=== PATIENT | male | born 1935 | race Caucasian/White ===

== ENCOUNTER 2017-09-05 23:09 | Inpatient (IN) | payer MEDICARE, OTHER ==
[~2017-09-05] VITALS: Ht 190.5 cm; Wt 116.7 kg
[2017-09-05 23:18] VITALS: BP 129/75; PULSE 68; RESP 18; TEMP 98.1; O2SAT 95
[2017-09-05] MEDS ORDERED: TAMS5CAP PO (23:27)
[2017-09-05] MEDS ORDERED: ALLO100T PO (23:27)
[2017-09-05] MEDS ORDERED: ASPI81CH6 CHEW ×2 (23:27)
[2017-09-05] MEDS ORDERED: SIMV40TA PO (23:27)
[2017-09-05] MEDS ORDERED: blood pressure pill (23:31)
[2017-09-05] MEDS ORDERED: CRAN1TAB5 (23:32)
[2017-09-05] MEDS ORDERED: D31000CA3 (23:32)
[2017-09-05] MEDS ORDERED: SODIUM CHLORIDE 0.9% FLUSH 10 ML FLUSH IVF PRN (23:45)
[2017-09-05] MEDS ORDERED: ONDANSETRON HCL 4 MG/2 ML VIAL IVP ONE (23:45)
--- NOTE | 2017-09-05 23:57 | PD ---
HPI Chief Complaint: Cardiac Complaint Time Seen by Provider: 23:37 Travel History International Travel<30 days: No Contact w/Intl Traveler<30days: No Traveled to known affect area: No History of Present Illness HPI 81-year-old male arrives by EMS. The patient experienced a syncope episode after urination. He fell to the ground. Evidently the son reported a loss of consciousness to EMS. The patient states he does not believe he lost consciousness. EMS reports patient was diaphoretic and pale on scene. He is found to be in bigeminy rhythm. He was given lidocaine which evidently converted to an atrial fibrillation type rhythm. In the ER the patient has no complaints and states I feel normal right now. He does note over the past month or so he said chronic shortness of breath. Over the past 2 weeks is gotten worse. Dyspnea on exertion is reported. He denies lower extremity edema. He denies change in urination frequency or volume. No history of COPD or CHF. PFSH Past Medical History Hx Anticoagulant Therapy: Yes (aspirin ) Atrial Fibrillation: Yes (recent) Hypertension: Yes Medical other: Yes (arthritis ) Tetanus Vaccination: Unknown Influenza Vaccination: Yes Social History Alcohol Use: Yes (rarely ) Tobacco Use: No Substance Use: No Allergies-Medications (Allergen,Severity, Reaction): Coded Allergies: No Known Allergies (Verified Allergy, Unknown, 09/05/17) Reported Meds & Prescriptions Reported Meds & Active Scripts Active Reported Allopurinol 300 Mg Tab 300 Mg PO DAILY Losartan (Losartan Potassium) 50 Mg Tab 50 Mg PO DAILY Vitamin D-3 (Cholecalciferol) 1,000 Unit Cap Cranberry Tablet (Cranberry Conc/C/Bacill Coag) 450 Mg-30 Mg-50 Million Cell Tablet Flomax (Tamsulosin HCl) 0.4 Mg Cap 0.4 Mg PO HS Simvastatin 40 Mg Tab 40 Mg PO HS Aspirin Low Dose (Aspirin) 81 Mg Chew 325 Mg CHEW DAILY Review of Systems Except as stated in HPI: all other systems reviewed are Neg General / Constitutional: No: Fever Eyes: No: Diploplia Physical Exam Narrative GENERAL: 81-year-old male pleasant well-nourished well-developed no acute distress Vital Signs Date Time Temp Pulse Resp B/P (MAP) Pulse Ox O2 Delivery O2 Flow Rate FiO2 09/05/17 23:18 98.1 68 18 129/75 (93) 95 Nasal Cannula 2.00 SKIN: Warm and dry. HEAD: Atraumatic. Normocephalic. EYES: Pupils equal and round. No scleral icterus. No injection or drainage. ENT: No nasal bleeding or discharge. Mucous membranes pink and moist. NECK: Trachea midline. No JVD. CARDIOVASCULAR: Irregular. Rate about 80. RESPIRATORY: No accessory muscle use. Clear to auscultation. Breath sounds equal bilaterally. GASTROINTESTINAL: Abdomen soft, non-tender, nondistended. Hepatic and splenic margins not palpable. MUSCULOSKELETAL: Extremities without clubbing, cyanosis, or edema. No obvious deformities. NEUROLOGICAL: Awake and alert. No obvious cranial nerve deficits. Motor grossly within normal limits. Five out of 5 muscle strength in the arms and legs. Normal speech. PSYCHIATRIC: Appropriate mood and affect; insight and judgment normal. Data Data Last Documented VS Vital Signs Date Time Temp Pulse Resp B/P (MAP) Pulse Ox O2 Delivery O2 Flow Rate FiO2 09/06/17 01:48 79 20 196/91 (126) 97 Nasal Cannula 2.00 09/05/17 23:18 98.1 Orders Orders Electrocardiogram (09/05/17 23:37) Complete Blood Count With Diff (09/05/17 23:37) Comprehensive Metabolic Panel (09/05/17 23:37) Magnesium (Mg) (09/05/17 23:37) B-Type Natriuretic Peptide (09/05/17 23:37) Ckmb (Isoenzyme) Profile (09/05/17 23:37) Troponin I (09/05/17 23:37) Act Partial Throm Time (Ptt) (09/05/17 23:37) Prothrombin Time / Inr (Pt) (09/05/17 23:37) Urinalysis - C+S If Indicated (09/05/17 23:37) Chest, Single Ap (09/05/17 23:37) Ct Brain W/O Iv Contrast(Rout) (09/05/17 23:37) Blood Glucose (09/05/17 23:37) Ecg Monitoring (09/05/17 23:37) Iv Access Insert/Monitor (09/05/17 23:37) Oximetry (09/05/17 23:37) Ondansetron Inj (Zofran Inj) (09/05/17 23:45) Sodium Chloride 0.9% Flush (Ns Flush) (09/05/17 23:45) Orthostatic Vital Signs (09/05/17 23:37) Ceftriaxone Inj (Rocephin Inj) (09/06/17 01:30) Blood Culture (09/06/17 01:29) Azithromycin Inj (Zithromax Inj) (09/06/17 01:30) Metoprolol Tartrate (Lopressor) (09/06/17 09:00) Echo 2d Comp With Doppler (09/06/17 ) Consult Cardiology (09/06/17 ) Place In Observation (09/06/17 ) Vital Signs (Adult) Q4H (09/06/17 02:03) Activity Oob With Assistance (09/06/17 02:03) Supervisor Film Processing / Telemetry .CONTINUOUS (09/06/17 02:03) Intake + Output PRIYANK.QSHIFT (09/06/17 02:03) Diet Heart Healthy (09/06/17 Breakfast) Sodium Chloride 0.9% Flush (Ns Flush) (09/06/17 02:15) Sodium Chloride 0.9% Flush (Ns Flush) (09/06/17 09:00) Ondansetron Inj (Zofran Inj) (09/06/17 02:15) Comprehensive Metabolic Panel (09/07/17 06:00) Complete Blood Count With Diff (09/07/17 06:00) Troponin I (09/06/17 06:00) Troponin I (09/06/17 12:00) Case Management Consult (09/06/17 02:03) Scd Bilateral/Knee High PRIYANK.BID (09/06/17 02:03) Stu Bilateral/Knee High PRIYANK.QSHIFT (09/06/17 02:06) Acetaminophen (Tylenol) (09/06/17 02:15) Acetamin-Hydrocod 325-5 Mg ([place] 5-325 (09/06/17 02:15) Morphine Inj (Morphine Inj) (09/06/17 02:15) Docusate Sodium-Senna (Estee-Colace) (09/06/17 09:00) Magnesium Hydroxide Liq (Milk Of Magnesi (09/06/17 02:15) Sennosides (Senokot) (09/06/17 02:15) Bisacodyl Supp (Dulcolax Supp) (09/06/17 02:15) Lactulose Liq (Lactulose Liq) (09/06/17 02:15) Electrocardiogram (09/06/17 06:00) Ceftriaxone Inj (Rocephin Inj) (09/06/17 23:00) Azithromycin Inj (Zithromax Inj) (09/06/17 23:00) Tamsulosin (Flomax) (09/06/17 21:00) Pravastatin (Pravachol) (09/06/17 21:00) Thyroid Stimulating Hormone (09/06/17 06:00) Aspirin (Aspirin) (09/06/17 09:00) Admit Order (Ed Use Only) (09/06/17 02:15) Labs Laboratory Tests Test 09/05/17 23:43 White Blood Count 11.4 TH/MM3 Red Blood Count 4.16 MIL/MM3 Hemoglobin 13.2 GM/DL Hematocrit 39.1 % Mean Corpuscular Volume 94.2 FL Mean Corpuscular Hemoglobin 31.7 PG Mean Corpuscular Hemoglobin Concent 33.7 % Red Cell Distribution Width 14.7 % Platelet Count 149 TH/MM3 Mean Platelet Volume 8.2 FL Neutrophils (%) (Auto) 75.0 % Lymphocytes (%) (Auto) 14.2 % Monocytes (%) (Auto) 9.4 % Eosinophils (%) (Auto) 1.0 % Basophils (%) (Auto) 0.4 % Neutrophils # (Auto) 8.5 TH/MM3 Lymphocytes # (Auto) 1.6 TH/MM3 Monocytes # (Auto) 1.1 TH/MM3 Eosinophils # (Auto) 0.1 TH/MM3 Basophils # (Auto) 0.0 TH/MM3 CBC Comment DIFF FINAL Differential Comment Prothrombin Time 11.8 SEC Prothromb Time International Ratio 1.2 RATIO Activated Partial Thromboplast Time 24.4 SEC Blood Urea Nitrogen 22 MG/DL Creatinine 1.15 MG/DL Random Glucose 138 MG/DL Total Protein 7.1 GM/DL Albumin 2.6 GM/DL Calcium Level 8.1 MG/DL Magnesium Level 2.1 MG/DL Alkaline Phosphatase 72 U/L Aspartate Amino Transf (AST/SGOT) 22 U/L Alanine Aminotransferase (ALT/SGPT) 31 U/L Total Bilirubin 0.4 MG/DL Sodium Level 139 MEQ/L Potassium Level 3.8 MEQ/L Chloride Level 106 MEQ/L Carbon Dioxide Level 23.0 MEQ/L Anion Gap 10 MEQ/L Estimat Glomerular Filtration Rate 61 ML/MIN Total Creatine Kinase 39 U/L Troponin I 0.04 NG/ML B-Type Natriuretic Peptide 295 PG/ML MDM Medical Decision Making Medical Screen Exam Complete: Yes Emergency Medical Condition: Yes Medical Record Reviewed: Yes Differential Diagnosis Intracranial hemorrhage, pneumonia, arrhythmia anemia electro imbalance Narrative Course CBC & BMP Diagram 09/05/17 23:43 Total Protein 7.1, Albumin 2.6 L, Calcium Level 8.1 L, Magnesium Level 2.1, Alkaline Phosphatase 72, Aspartate Amino Transf (AST/SGOT) 22, Alanine Aminotransferase (ALT/SGPT) 31, Total Bilirubin 0.4 Tn 0.04 BNP 295 EKG: irregular rhythm, rate [address] [id number] Signed Impressions: Service Date/Time: Wednesday, September 06, 2017 00:02 - CONCLUSION: 1. No evidence of acute intracranial pathology. No masses are identified. Daron Philippe MD Chest X-Ray [id number]/[id number] Signed Impressions: Service Date/Time: Tuesday, September 05, 2017 23:57 - CONCLUSION: 1. Cardiomegaly 2. Opacity laterally in the right upper lobe characteristic of pneumonia. Followup examination to insure clearing is recommended. Daron Philippe MD Patient has a pneumonia. Concern for a diagnosis of CHF. Patient received Rocephin azithromycin and Lasix. The patient reports pending consult with Dr Boyle of cardiology. D/w Dr Herbert Diagnosis Primary Impression: Syncope Qualified Codes: R55 - Syncope and collapse Additional Impressions: PNA (pneumonia) Qualified Codes: J18.9 - Pneumonia, unspecified organism Arrhythmia Qualified Codes: I49.9 - Cardiac arrhythmia, unspecified Admitting Information Admitting Physician Requests: Observation Jose Alejandro Roldan MD Sep 05, 2017 23:57
[2017-09-05 23:59] LABS: AUTOMATED NEUTROPHIL # 8.5 TH/MM3 (1.8-7.7); BASOPHIL % 0.4 % (0.0-2.0); EOSINOPHIL # 0.1 TH/MM3 (0-0.4); HEMATOCRIT 39.1 % (39.0-51.0); HEMOGLOBIN 13.2 GM/DL (13.0-17.0); LYMPH % 14.2 % (9.0-44.0); LYMPHOCYTE # 1.6 TH/MM3 (1.0-4.8); MEAN CELL VOLUME 94.2 FL (80.0-100.0); MEAN CORPUSCULAR HEMOGLOBIN 31.7 PG (27.0-34.0); MEAN CORPUSCULAR HGB CONC 33.7 % (32.0-36.0); MEAN PLATELET VOLUME 8.2 FL (7.0-11.0); MONO % 9.4 % (0.0-8.0); MONOCYTE # 1.1 TH/MM3 (0-0.9); PLATELET COUNT 149 TH/MM3 (150-450); RED BLOOD COUNT 4.16 MIL/MM3 (4.50-5.90); RED CELL DISTRIBUTION WIDTH 14.7 % (11.6-17.2); WHITE BLOOD COUNT 11.4 TH/MM3 (4.0-11.0)
[2017-09-06] VITALS (16 sets, daily range): BP systolic 130–196; BP diastolic 62–94; PULSE 57–79; RESP 18–20; TEMP 97.4–98; O2SAT 94–98
[2017-09-06 00:11] LABS: INTERNATIONAL NORMALIZED RATIO 1.2 RATIO; PROTHROMBIN TIME - PATIENT 11.8 SEC (9.8-11.6)
--- NOTE | 2017-09-06 00:18 | RADRPT ---
EXAM DATE/TIME: 09/05/2017 23:57 [facility] COMPARISON: No previous studies available for comparison. INDICATIONS : Syncopal episode. MEDICAL HISTORY : None. SURGICAL HISTORY : None. ENCOUNTER: Initial ACUITY: 1 day PAIN SCORE: 0/10 LOCATION: Bilateral chest FINDINGS: The cardiac silhouette is enlarged in transverse diameter. There is prominence of the aortic knob is with calcification characteristic of atherosclerotic vascular disease. There is a small area of alveo lar opacity laterally in the right upper lobe adjacent to the minor fissure characteristic of pneumon ia. No pleural effusions are identified. CONCLUSION: 1. Cardiomegaly 2. Opacity laterally in the right upper lobe characteristic of pneumonia. Followup examination to in sure clearing is recommended. Daron Philippe MD on September 06, 2017 at 0:15 Board Certified Radiologist. This report was verified electronically.
[2017-09-06 00:19] LABS: ALBUMIN 2.6 GM/DL (3.4-5.0); ALT (GPT) 31 U/L (12-78); AST (GOT) 22 U/L (15-37); BLOOD UREA NITROGEN 22 MG/DL (7-18); CALCIUM 8.1 MG/DL (8.5-10.1); CHLORIDE 106 MEQ/L (98-107); CREATININE 1.15 MG/DL (0.60-1.30); GLOMERULAR FILTRATION RATE 61 ML/MIN (>89); GLUCOSE,RANDOM 138 MG/DL (74-106); MAGNESIUM 2.1 MG/DL (1.5-2.5); SODIUM (NA) 139 MEQ/L (136-145)
[2017-09-06 00:24] LABS: ALKALINE PHOSPHATASE 72 U/L (45-117); TOTAL BILIRUBIN ADULT 0.4 MG/DL (0.2-1.0); TOTAL PROTEIN 7.1 GM/DL (6.4-8.2); TROPONIN I 0.04 NG/ML (0.02-0.05)
[2017-09-06] MEDS ORDERED: AZITHROMYCIN INJ 500 MG in SODIUM CHLOR 0.9% 250 ML INJ 250 ML IV ONE (01:30)
[2017-09-06] MEDS ORDERED: cefTRIAXone INJ 1,000 MG in SODIUM CHLORIDE 0.9% INJ 100 ML IV ONE (01:30)
[2017-09-06] MEDS ORDERED: LOSA50TA PO (01:53)
[2017-09-06] MEDS ORDERED: ALLO300T2 PO (01:53)
[2017-09-06] MEDS ORDERED: BISACODYL 10 MG SUPP RECTAL PRN (02:15)
[2017-09-06] MEDS ORDERED: LACTULOSE SYRUP 20 GM/30 ML CUP PO PRN (02:15)
[2017-09-06] MEDS ORDERED: MAGNESIUM HYDROXIDE SUSP 30 ML CUP PO PRN (02:15)
[2017-09-06] MEDS ORDERED: SODIUM CHLORIDE 0.9% FLUSH 10 ML FLUSH IV FLUSH PRN (02:15)
[2017-09-06] MEDS ORDERED: ACETAMINOPHEN/HYDROcodone 325 MG/5 MG TAB PO PRN (02:15)
[2017-09-06] MEDS ORDERED: ACETAMINOPHEN 325 MG TAB PO PRN (02:15)
[2017-09-06] MEDS ORDERED: SENNOSIDES 8.6 MG TAB PO PRN (02:15)
[2017-09-06] MEDS ORDERED: MORPHINE SULFATE 2 MG/ML SYRINGE IV PUSH PRN (02:15)
[2017-09-06] MEDS ORDERED: ONDANSETRON HCL 4 MG/2 ML VIAL IVP PRN (02:15)
--- NOTE | 2017-09-06 02:21 | RADRPT ---
EXAM DATE/TIME: 09/06/2017 00:02 [facility] COMPARISON: No previous studies available for comparison. INDICATIONS : Dizziness. RADIATION DOSE: 56.35 CTDIvol (mGy) MEDICAL HISTORY : Hypertension. SURGICAL HISTORY : None. ENCOUNTER: Initial ACUITY: 1 day PAIN SCALE: 0/10 LOCATION: cranial TECHNIQUE: Multiple contiguous axial images were obtained of the head. Using automated exposure control and adj ustment of the mA and/or kV according to patient size, radiation dose was kept as low as reasonably a chievable to obtain optimal diagnostic quality images. DICOM format image data is available electro nically for review and comparison. FINDINGS: Noncontrast axial head CT demonstrates the ventricles to be normal in size and configuration with a n ormal sulcal pattern. No acute intracranial hemorrhage, acute cortical infarction, mass or midline sh ift is seen. There is decreased density in the periventricular white matter consistent with small ves [place] vascular disease not unexpected in a patient of this age. Posterior fossa structures are unremark able. Bone windows are unremarkable. CONCLUSION: 1. No evidence of acute intracranial pathology. No masses are identified. Daron Philippe MD on September 06, 2017 at 2:18 Board Certified Radiologist. This report was verified electronically.
--- NOTE | 2017-09-06 03:00 | HHI.HP ---
[facility] Krystyna Garcia MD Admission Diagnosis SYNCOPE,CHF,PNA Diagnoses: (1) Syncope Diagnosis: Principal (2) PNA (pneumonia) Diagnosis: Principal (3) Arrhythmia Diagnosis: Principal Travel History International Travel<30 Days: No Contact w/Intl Traveler <30 Da: No Traveled to Known Affected Are: No History of Present Illness This is an 81-year-old male with a PMH of HTN who is brought to the ER by EMS after an apparent syncopal event. Per patient, he had gone to the bathroom and when he got up from the toilet felt significant dizziness and SOB, states he tried to sit at the edge of the tub to catch his breath, however Son reports pt had syncopal event. No seizure activity reported. No previous h/o similar symptoms. Upon EMS arrival, pt noted to be in bigeminy, given Lidocaine w/ conversion to A-fib. Pt states he's been following w/ his PCP, Dr. Garcia, for SOB which started approx 2mo ago, at that time was referred for EKG and states the tech told him he was in A-fib, however never officially diagnosed. Was supposed to be referred to Dr. Arguello on Friday for further evaluation. Pt notes progressive SOB, first 100ft, then 50ft, now reports SOB w/ few feet. Denies fever, chills. Reports occasional non-productive cough. No edema. On arrival, BP 129/75, HR 68, O2 sat 95% on 2L NC, Afebrile. WBC 11.4. Platelets 149, no previous labs for comparison. BUN 22, GFR 61. BNP 295. Troponin 0.04. INR 1.2. CXR with cardiomegaly, opacity right upper lobe characteristic of pneumonia. CT Head with no acute findings. S/p Rocephin/Zithro in ER. Currently without complaints. Review of Systems Except as stated in HPI: all other systems reviewed are Neg ROS: 14 point review of systems otherwise negative. Past Family Social History Past Medical History PMH: HTN Past Surgical History PAST SURGICAL HISTORY: Bilateral Knee Replacement Allergies: Coded Allergies: No Known Allergies (Verified Allergy, Unknown, 09/05/17) Family History PAST FAMILY HISTORY: Reviewed. No h/o DM or CAD Social History PAST SOCIAL HISTORY: Occasional alcohol. Negative for tobacco or drugs. Physical Exam Vital Signs Vital Signs Date Time Temp Pulse Resp B/P (MAP) Pulse Ox O2 Delivery O2 Flow Rate FiO2 09/06/17 01:48 79 20 196/91 (126) 97 Nasal Cannula 2.00 09/06/17 00:24 59 18 130/62 (84) 96 Nasal Cannula 2.00 09/06/17 00:18 97 Nasal Cannula 2.00 09/05/17 23:18 98.1 68 18 129/75 (93) 95 Nasal Cannula 2.00 Physical Exam PE: GENERAL: Extremely pleasant elderly white male in no acute distress. HEENT: PERRLA, EOMI. No scleral icterus or conjunctival pallor. No lid lag or facial droop. CARDIOVASCULAR: Irregular, HR 90's. No obvious murmurs to auscultation. No chest tenderness to palpation. RESPIRATORY: No obvious rhonchi or wheezing. Clear to auscultation. Breath sounds equal bilaterally. GASTROINTESTINAL: Abdomen soft, non-tender, nondistended. BS normal. MUSCULOSKELETAL: Extremities without clubbing, cyanosis, or edema. No obvious deformities. NEUROLOGICAL: Awake, alert and oriented x4. No focal neurologic deficits. Moving both upper and lower extremities spontaneously. Laboratory Laboratory Tests Test 09/05/17 23:43 White Blood Count 11.4 Red Blood Count 4.16 Hemoglobin 13.2 Hematocrit 39.1 Mean Corpuscular Volume 94.2 Mean Corpuscular Hemoglobin 31.7 Mean Corpuscular Hemoglobin Concent 33.7 Red Cell Distribution Width 14.7 Platelet Count 149 Mean Platelet Volume 8.2 Neutrophils (%) (Auto) 75.0 Lymphocytes (%) (Auto) 14.2 Monocytes (%) (Auto) 9.4 Eosinophils (%) (Auto) 1.0 Basophils (%) (Auto) 0.4 Neutrophils # (Auto) 8.5 Lymphocytes # (Auto) 1.6 Monocytes # (Auto) 1.1 Eosinophils # (Auto) 0.1 Basophils # (Auto) 0.0 CBC Comment DIFF FINAL Differential Comment Prothrombin Time 11.8 Prothromb Time International Ratio 1.2 Activated Partial Thromboplast Time 24.4 Blood Urea Nitrogen 22 Creatinine 1.15 Random Glucose 138 Total Protein 7.1 Albumin 2.6 Calcium Level 8.1 Magnesium Level 2.1 Alkaline Phosphatase 72 Aspartate Amino Transf (AST/SGOT) 22 Alanine Aminotransferase (ALT/SGPT) 31 Total Bilirubin 0.4 Sodium Level 139 Potassium Level 3.8 Chloride Level 106 Carbon Dioxide Level 23.0 Anion Gap 10 Estimat Glomerular Filtration Rate 61 Total Creatine Kinase 39 Troponin I 0.04 B-Type Natriuretic Peptide 295 Date/Time Source Procedure Growth Status 09/06/17 01:45 Blood Peripheral Aerobic Blood Culture Pending Received 09/06/17 01:45 Blood Peripheral Anaerobic Blood Culture Pending Received Result Diagram: 09/05/17 2343 09/05/17 2343 Caprindory VTE Risk Assessment Caprini VTE Risk Assessment: No/Low Risk (score <= 1) Caprini Risk Assessment Model Point Value = 1 Point Value = 2 Point Value = 3 Point Value = 5 Age 41-60 Minor surgery BMI > 25 kg/m2 Swollen legs Varicose veins or History of unexplained or recurrent spontaneous Oral contraceptives or hormone replacement Sepsis (< 1 month) Serious lung disease, including pneumonia (< 1 month) Abnormal pulmonary function Acute myocardial infarction Congestive heart failure (< 1 month) History of inflammatory bowel disease Medical patient at bed rest Age 61-74 Arthroscopic surgery Major open surgery (> 45 min) Laparoscopic surgery (> 45 min) Malignancy Confined to bed (> 72 hours) Immobilizing plaster cast Central venous access Age >= 75 History of VTE Family history of VTE Factor V Leiden Prothrombin [id number] Lupus anticoagulant Anticardiolipin antibodies Elevated serum homocysteine Heparin-induced thrombocytopenia Other congenital or acquired thrombophilia Stroke (< 1 month) Elective arthroplasty Hip, pelvis, or leg fracture Acute spinal cord injury (< 1 month) Prophylaxis Regimen Total Risk Factor Score Risk Level Prophylaxis Regimen 0-1 Low Early ambulation 2 Moderate Order ONE of the following: *Sequential Compression Device (SCD) *Heparin 5000 units SQ BID 3-4 Higher Order ONE of the following medications: *Heparin 5000 units SQ TID *Enoxaparin/Lovenox 40 mg SQ daily (WT < 150 kg, CrCl > 30 mL/min) *Enoxaparin/Lovenox 30 mg SQ daily (WT < 150 kg, CrCl > 10-29 mL/min) *Enoxaparin/Lovenox 30 mg SQ BID (WT < 150 kg, CrCl > 30 mL/min) AND/OR *Sequential Compression Device (SCD) 5 or more Highest Order ONE of the following medications: *Heparin 5000 units SQ TID (Preferred with Epidurals) *Enoxaparin/Lovenox 40 mg SQ daily (WT < 150 kg, CrCl > 30 mL/min) *Enoxaparin/Lovenox 30 mg SQ daily (WT < 150 kg, CrCl > 10-29 mL/min) *Enoxaparin/Lovenox 30 mg SQ BID (WT < 150 kg, CrCl > 30 mL/min) AND *Sequential Compression Device (SCD) Assessment and Plan Problem List: (1) Syncope ICD Code: R55 - Syncope and collapse (2) Arrhythmia ICD Code: I49.9 - Cardiac arrhythmia, unspecified (3) PNA (pneumonia) ICD Code: J18.9 - Pneumonia, unspecified organism Assessment and Plan A/P: 1. Syncope: acute lightheadedness/dizziness w/ subsequent syncopal event, no head trauma reported. CT Head w/ no acute findings, images reviewed by me. Admit for Observation, Telemetry, check Echo to eval for underlying cardiomyopathy/valvular abnormality. Initial trop 0.04, will check serial cardiac enzymes to eval for possible ischemia. Was to follow w/ Dr. Arguello as outpatient, will consult for further evaluation. 2. Arrhythmia: noted to be in Bigeminy per EMS, s/p Lidocaine w/ conversion to A-fib, episode of A-fib approx 2 mo ago but no formal diagnosis per patient. Telemetry, monitor electrolytes. Start Metoprolol. Check Echo as above. Consult Cardiology for further eval. Repeat EKG w/ next set of trop. 3. PNA: CXR w/ RUL PNA, notes cough, SOB and pleuritic pain. S/p Rocephin/ Zithro in ER, will continue w/ IV Abx. 4. DVT Prophylaxis: SCD/Teds 5. Social work for d/c planning as needed 6. Case discussed w/ ER physician at length, labs/records/imaging reviewed by me. Jyothi Herbert MD Sep 06, 2017 02:59
[2017-09-06 06:52] LABS: TROPONIN I 0.05 NG/ML (0.02-0.05)
[2017-09-06] MEDS ORDERED: ASPIRIN 325 MG TAB PO SCH (09:00)
[2017-09-06] MEDS: SODIUM CHLORIDE 0.9% FLUSH 10 ML FLUSH IV FLUSH SCH ×2 (09:59→20:54)
[2017-09-06] MEDS: DOCUSATE SODIUM 50 MG/SENNA 8.6 MG TAB PO SCH ×2 (09:59→20:53)
[2017-09-06] MEDS: METOPROLOL TARTRATE 25 MG TAB PO SCH ×2 (09:59→20:53)
--- NOTE | 2017-09-06 15:44 | MB ---
cc: Wilfredo Boyle MD, Prady M MD DATE: 09/06/2017 REASON FOR CONSULTATION: Atrial fibrillation, syncope. HISTORY OF PRESENT ILLNESS: Mr. Hutton is a pleasant 81-year-old gentleman with history of hypertension and hyperlipidemia. No history of diabetes. He used to smoke but stopped 60 years ago. No history of diabetes or immediate family history of coronary artery disease at premature age. Recently diagnosed with atrial fibrillation and has been progressively more short of breath over the past 1-2 weeks to the point that he used to get dyspneic on exertion at the end of 1 block, now he can only walk a few feet and gets short of breath. He has been having some cough and sputum production, sometimes with streaks of blood. He has been having chest discomfort when he takes a deep breath. Denies angina or any palpitations. He has been getting dizzy with his shortness of breath. He came in because of a syncopal or a near-syncopal episode that happened after he went to the bathroom and he felt wobbly and wanted to sit at the edge of the top and then slipped down. His was watching and she does not feel like he had a complete syncopal spell; however, his "his eyes were rolling." There was no preceding chest pains or palpitations. He had some urinary incontinence, but no tongue biting or convulsions noted. He was taken by [facility] then and was told he had "bigeminy." Denies lower extremity edema, but he has been progressively short of breath, as I mentioned, over the past 1-2 weeks. REVIEW OF SYSTEMS: A 12-point system review was unremarkable, except as mentioned in the history of present illness. Denies fever. Admits to cough and sputum production as mentioned. No prior history of seizures. No prior history of congestive heart failure or obstructive sleep apnea diagnosis. MEDICATIONS AT HOME: Includes the followin. Losartan 50 mg p.o. daily. 2. Simvastatin 40 mg p.o. at bedtime. 3. Flomax 0.4 mg p.o. at bedtime, which he has been on for a period of time. 4. Allopurinol 300 mg p.o. daily. PAST MEDICAL AND SURGICAL HISTORY: Includes as mentioned above. Has 3 knee replacements in the past. Left femur fracture, surgical intervention. Benign prostatic hypertrophy with elevated PSA, which came down with the Flomax therapy. He is followed by urology. FAMILY HISTORY: Negative for chronic disease, cancer, diabetes, or hypertension. SOCIAL HISTORY: Denies smoking. He does drink a large beer a day and occasionally he will take a glass of whiskey as well. Denies recreational drug abuse. He is and lives with his . PHYSICAL EXAMINATION: GENERAL: An 81-year-old gentleman lying in bed, in no apparent distress, alert and oriented x 3, answers questions appropriately. VITAL SIGNS: Blood pressure is 140/70 mmHg, pulse of 60 beats per minute, irregularly irregular, respiration at 20 per minute, afebrile. HEENT: Shows head is normocephalic. Pupils equal, reactive. Throat is within normal limits. NECK: Supple. No carotid bruit. No thyromegaly. No jugular venous distention noted. LUNGS: Few crepitations noted at the bases bilaterally, more on the left base. HEART: S1, S2 are variable in intensity and distant with a faint S4 gallops. ABDOMEN: Somewhat obese but lax, nontender. Normoactive bowel sounds. No organomegaly, no masses felt. EXTREMITIES: No clubbing, cyanosis or edema. Pulses 2+ bilaterally and no bruit noted. NEUROLOGIC: Grossly intact with no focal deficits. RECTAL EXAM: Deferred. DIAGNOSTIC STUDIES: EKG shows atrial fibrillation with occasional PVCs versus aberrantly conducted beats and nonspecific ST-T wave changes. Controlled ventricular response rate. Laboratories shows a sodium 139, potassium 3.8, BUN of 22, creatinine 1.15. Nonspecific BNP elevation at 295. His troponin I x 3 is normal. TSH is 1.04, magnesium of 2.1. Coags were within normal limits. CBC shows a white count of 11.4, hemoglobin of 13.2 and a platelet count of 149. He had a chest x-ray that reported "cardiomegaly" and also right upper lobe "pneumonia". ASSESSMENT AND RECOMMENDATIONS: Progressive shortness of breath on top of atrial fibrillation; however, with occasional episodes of some degree of mild hemoptysis with pleuritic chest pain and progressive symptoms of shortness of breath for which a CTA to rule out pulmonary embolism will be ordered. I understand that his chest x-ray reported pneumonia; however, PE needs to be ruled out because of the above reasons. Complete set of electrolytes as well as a free T4 levels will be checked. I would continue her current regimen for now. However, if his CT angiogram is indicative of pulmonary emboli, then he should be fully anticoagulated. Of course with close eye on his streaks of blood in his sputum. CTA of the chest will also help identify any masses. Regarding his syncope, on telemetry, he is in atrial fibrillation with premature ventricular contractions in some runs that are multifocal but no significant arrhythmia so far to explain his syncope. An echocardiogram is ordered already and it will be checked. He will benefit from obstructive sleep apnea evaluation as an outpatient. He will also benefit from stress testing as an outpatient. Regarding his presumed diagnosis of pneumonia, he has already been started on antibiotics. I thank you for the consultation. MD JENY Parra/GITA , 02:59 PM , 03:43 PM
[2017-09-06] MEDS ORDERED: IOHEXOL 350 MG/ML 10 ML VIAL (for RAD DIAG) IVCONTRAST ONE (16:00)
--- NOTE | 2017-09-06 16:21 | RADRPT ---
EXAM DATE/TIME: 09/06/2017 15:51 [facility] COMPARISON: CHEST SINGLE AP, September 05, 2017, 23:57. INDICATIONS : Chest pain and shortness of breath for two days. IV CONTRAST: 70 cc Omnipaque 350 (iohexol) IV RADIATION DOSE: 28.17 CTDIvol (mGy) ; Patient positioning; Patient body habitus MEDICAL HISTORY : Hypertension. Cardiovascular disease SURGICAL HISTORY : None. ENCOUNTER: Initial ACUITY: 2 days PAIN SCALE: 5/10 LOCATION: Bilateral chest TECHNIQUE: Volumetric scanning of the chest was performed using a pulmonary embolism protocol MIP images were re constructed. Using automated exposure control and adjustment of the mA and/or kV according to patien t size, radiation dose was kept as low as reasonably achievable to obtain optimal diagnostic quality images. DICOM format image data is available electronically for review and comparison. Follow-up recommendations for detected pulmonary nodules are based at a minimum on nodule size and pa tient risk factors according to Fleischner Society Guidelines. FINDINGS: PULMONARY ARTERIES: There is extensive bilateral pulmonary embolism with a thin saddle embolus straddling the pulmonary a rtery bifurcation and extensive clot present in segmental and subsegmental vessels bilaterally. LUNGS: There is airspace opacity in the posterolateral aspect of the right upper lobe and mild interstitial parenchymal opacity in the lung bases bilaterally. PLEURAE: There is no pleural thickening or pleural effusion. MEDIASTINUM: There is good visualization of the great vessels of the middle mediastinum. No evidence of mediastin al or hilar adenopathy/mass. MUSCULOSKELETAL: Within normal limits for patient age. MISCELLANEOUS: The visualized upper abdominal organs demonstrate no acute abnormality. CONCLUSION: Extensive bilateral pulmonary embolism. Jose Nixon MD on September 06, 2017 at 16:15 Board Certified Radiologist. This report was verified electronically.
[2017-09-06] MEDS: ENOXAPARIN SODIUM 100 MG/ML SYRINGE SQ SCH (16:57)
--- NOTE | 2017-09-06 18:07 | RADRPT ---
EXAM DATE/TIME: 09/06/2017 17:23 [facility] COMPARISON: No previous studies available for comparison. INDICATIONS : Bilateral leg swelling. MEDICAL HISTORY : Hypertension. Anticoagulant therapy. Atrial fibrillation. Arthritis. SURGICAL HISTORY : Bilateral knee replacements. ENCOUNTER: Initial ACUITY: 1 day PAIN SCORE: 0/10 LOCATION: Bilateral legs. TECHNIQUE: Venous ultrasound of the left and right leg was performed from the inguinal ligament to the proximal calf. Real-time, color Doppler and spectral tracing, compression and augmentation techniques were us ed. FINDINGS: RIGHT LEG: There is nonocclusive thrombus in the right posterior tibial vein. Other venous tributaries of the ri t lower extremity are patent. LEFT LEG: There is occlusive thrombus in the left peroneal vein. There is nonocclusive thrombus in the left pop liteal and posterior tibial veins. Other venous tributaries of the left lower extremity are patent. CONCLUSION: Bilateral lower extremity DVT as above. Jose Melgar MD on September 06, 2017 at 18:03 Board Certified Radiologist. This report was verified electronically.
--- NOTE | 2017-09-06 18:24 | HHI.PR ---
Subjective Remarks telemetry- with occasional PVCs per patient increasing shortness of breath for past 3 weeeks this last week even with 20-30 ft distance experienced some chest discomfort- sharp with deep insipiration- right sided that has resolved 2 days ago had episodes of blood streak sputum seen by Dr. Boyle - ordered a CTA + PE patient denies any history of GI bleeding, or any bleeding tendencies no recent major surgeries Objective Vitals Vital Signs Date Time Temp Pulse Resp B/P (MAP) Pulse Ox O2 Delivery O2 Flow Rate FiO2 09/06/17 18:15 98.0 59 20 163/72 (102) 96 09/06/17 15:14 64 19 149/92 (111) 96 Nasal Cannula 2.00 09/06/17 09:30 61 18 143/73 (96) 98 Nasal Cannula 3.00 09/06/17 08:30 97.6 72 18 155/85 (108) 97 Nasal Cannula 3.00 09/06/17 04:51 98.0 63 18 136/69 (91) 96 Nasal Cannula 3.00 09/06/17 03:01 67 18 156/79 (104) 94 Nasal Cannula 3.00 09/06/17 01:48 79 20 196/91 (126) 97 Nasal Cannula 2.00 09/06/17 00:24 59 18 130/62 (84) 96 Nasal Cannula 2.00 09/06/17 00:18 97 Nasal Cannula 2.00 09/05/17 23:21 65 28 93 Nasal Cannula 2.00 09/05/17 23:18 98.1 68 18 129/75 (93) 95 Nasal Cannula 2.00 I/O 09/05/17 09/05/17 09/05/17 09/06/17 09/06/17 09/06/17 07:00 15:00 23:00 07:00 15:00 23:00 Intake Total 350 ml Balance 350 ml Intake IV Total 350 ml Result Diagram: 09/05/17 2343 09/05/17 [address] Angiography 09/06/17 1505 Signed Impressions: Service Date/Time: Wednesday, September 06, 2017 15:51 - CONCLUSION: Extensive bilateral pulmonary embolism. Jose Nixon MD Lower Extremity Ultrasound 09/06/17 0000 Signed Impressions: Service Date/Time: Wednesday, September 06, 2017 17:23 - CONCLUSION: Bilateral lower extremity DVT as above. Jose Melgar MD Head CT [id number] Signed Impressions: Service Date/Time: Wednesday, September 06, 2017 00:02 - CONCLUSION: 1. No evidence of acute intracranial pathology. No masses are identified. Daron Philippe MD Chest X-Ray [id number]/05/[id number] Signed Impressions: Service Date/Time: Tuesday, September 05, 2017 23:57 - CONCLUSION: 1. Cardiomegaly 2. Opacity laterally in the right upper lobe characteristic of pneumonia. Followup examination to insure clearing is recommended. Daron Philippe MD Objective Remarks awake and alert, tachypneic telemetry- with occasinal PVc decrease breath sounds, no rales regular rhythm, PVcs abdomen- globularly soft, nontender extremiteis no edema, no calf tenderness A/P Assessment and Plan A/P: 81 years old male Acute Bilateral Pulmonary embolism - no bleeding tendencies/history, no recent major surgeries -started on Lovenox q 12 - get Doppler of both LE- check for DVT - 02 NC Chest pain- likely from PE Syncope likely from PE -Cardiology ff - ff lytes - continue meds PNA: CXR w/ RUL PNA, -will continue w/ IV Abx. DVT Prophylaxis: - on Lovenox for above Will do walk test prior to DC ADD: reviewed CTA- extensive PE on description with thin SADDLE embolus -consult member service representative to evaluate for possible candidate for TPA- - called and d/w Dr. Ortiz - - transfer [place] [facility] [place] possible [place]PA Fidel Harp MD Sep 06, 2017 18:24
[2017-09-06] MEDS: PRAVASTATIN SOD 80 MG TAB PO SCH (20:53)
[2017-09-06] MEDS: TAMSULOSIN HCL 0.4 MG CAP PO SCH (20:53)
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
[2017-09-06] MEDS: cefTRIAXone INJ 1,000 MG in SODIUM CHLORIDE 0.9% INJ 100 ML IV SCH (23:19)
[2017-09-06] MEDS: AZITHROMYCIN INJ 500 MG in SODIUM CHLOR 0.9% 250 ML INJ 250 ML IV SCH (23:56)
[2017-09-07] VITALS (17 sets, daily range): BP systolic 106–186; BP diastolic 57–86; PULSE 46–69; RESP 28; TEMP 97–99.1; O2SAT 96–100
[2017-09-07] MEDS ORDERED: ALTEPLASE INJ 50 MG in WATER STERILE FOR INJ 100 ML IV ONE ×2
[2017-09-07] MEDS ORDERED: MISCELLANEOUS NURSING INFORMATION OTHER PRN
[2017-09-07 02:56] LABS: BILIRUBIN, URINE NEG (NEG); BLOOD, URINE LARGE (NEG); GLUCOSE,URINE NEG (NEG); KETONE, URINE NEG (NEG); MUCUS URINE FEW /lpf (OCC); NITRITE,URINE NEG (NEG); PH, URINE 5.5 (5.0-8.5); SQUAMOUS EPITHELIAL CELL URINE 1 /hpf (0-5); URINE COLOR YELLOW (YELLW/STRAW); URINE LEUKOCYTE ESTERASE NEG (NEG)
[2017-09-07] MEDS ORDERED: ENALAPRILAT 1.25 MG/ML VIAL IV PUSH PRN (04:30)
[2017-09-07] MEDS: ENOXAPARIN SODIUM 100 MG/ML SYRINGE SQ SCH ×2 (05:01→17:06)
[2017-09-07 06:00] LABS: AUTOMATED NEUTROPHIL # 8.7 TH/MM3 (1.8-7.7); BASOPHIL % 0.4 % (0.0-2.0); EOSINOPHIL # 0.1 TH/MM3 (0-0.4); EOSINOPHIL % 0.5 % (0.0-4.0); HEMOGLOBIN 11.8 GM/DL (13.0-17.0); LYMPH % 13.3 % (9.0-44.0); LYMPHOCYTE # 1.5 TH/MM3 (1.0-4.8); MEAN CELL VOLUME 93.4 FL (80.0-100.0); MEAN CORPUSCULAR HEMOGLOBIN 31.5 PG (27.0-34.0); MEAN CORPUSCULAR HGB CONC 33.8 % (32.0-36.0); MEAN PLATELET VOLUME 7.8 FL (7.0-11.0); MONO % 7.3 % (0.0-8.0); MONOCYTE # 0.8 TH/MM3 (0-0.9); NEUT % 78.5 % (16.0-70.0); PLATELET COUNT 147 TH/MM3 (150-450); RED BLOOD COUNT 3.75 MIL/MM3 (4.50-5.90); RED CELL DISTRIBUTION WIDTH 14.5 % (11.6-17.2)
[2017-09-07 06:16] LABS: ALBUMIN 2.4 GM/DL (3.4-5.0); ALT (GPT) 32 U/L (12-78); AST (GOT) 26 U/L (15-37); BICARBONATE 24.7 MEQ/L (21.0-32.0); BLOOD UREA NITROGEN 25 MG/DL (7-18); CALCIUM 8.3 MG/DL (8.5-10.1); CHLORIDE 106 MEQ/L (98-107); CREATININE 1.02 MG/DL (0.60-1.30); GLOMERULAR FILTRATION RATE 70 ML/MIN (>89); GLUCOSE,RANDOM 115 MG/DL (74-106); SODIUM (NA) 138 MEQ/L (136-145)
[2017-09-07 06:19] LABS: ALKALINE PHOSPHATASE 66 U/L (45-117); FREE T4 1.14 NG/DL (0.76-1.46); PHOSPHORUS 3.4 MG/DL (2.5-4.9); TOTAL BILIRUBIN ADULT 0.6 MG/DL (0.2-1.0); TOTAL PROTEIN 6.5 GM/DL (6.4-8.2)
[2017-09-07] MEDS: DOCUSATE SODIUM 50 MG/SENNA 8.6 MG TAB PO SCH ×2 (09:00→21:01)
[2017-09-07] MEDS: DOCUSATE SODIUM 100 MG CAP PO SCH ×2 (09:09→21:01)
[2017-09-07] MEDS: LOSARTAN 50 MG TAB PO SCH (09:09)
[2017-09-07] MEDS: ALLOPURINOL 300 MG TAB PO SCH (09:09)
[2017-09-07] MEDS: SODIUM CHLORIDE 0.9% FLUSH 10 ML FLUSH IV FLUSH SCH ×2 (09:10→21:01)
[2017-09-07] MEDS: FAMOTIDINE 20 MG TAB PO SCH ×2 (09:13→21:01)
[2017-09-07] MEDS ORDERED: hydrALAZINE HCL 20 MG/ML VIAL IV PUSH PRN (10:30)
--- NOTE | 2017-09-07 11:13 | HHI.CCPN ---
Subjective Remarks/Hospital Course Hospital Course: 81-year-old male with past medical history of hypertension, hyperlipidemia, obesity, remote tobacco abuse who presented [place] [facility] [place] of [place]05 after a syncopal event. Reportedly patient was in the bathroom and was short of breath and then became unresponsive and was lowered to the ground by his son. No seizure or head trauma.. EVAC was called and found him diaphoretic, pale, in bigeminy. He was given lidocaine and then was in A fib. Troponin was normal. CXR showed RLL opacity and he as given ceftriaxone and azithromycin. He was admitted to hospitalist for further workup. CT chest was ordered by Dr. Serrato and demonstrates extensive bilateral pulmonary emboli. There is a saddle embolus component. He has received Lovenox [address] Harp has consulted [facility] regarding possible fibrinolytic therapy. Patient state he has noticed dyspnea on exertion about 2 months. He states he had previously had an EKG in December 2016 and had been told that he had atrial fibrillation. He was told to follow-up with cardiology but did not. A week ago he was at PCP (Dr. García) and was referred to Dr. Serrato. Patient states that for the last 2 weeks he has had progressive worsening SOB. Over the last 2 days he has been SOB with ambulating a few feet. He has had some cough, occasionally productive of blood tinged sputum. No peripheral edema. He has had some pain in his right posterior thorax, intermittent, pleuritic. No chest pain with exertion. No palpitations. No prior h/o VTE, no recent surgery, no known malignancy, no trauma. No h/o stroke/TIA , ICH, trauma, brain/spinal lesions, GI or other bleeding, bleeding diathesis, recent surgery, spinal intervention, prior anticoagulant therapy, retinopathy or other absolute contraindication for fibrinolytic. Serial troponins have been normal. BNP 295. He has been normotensive/hypertensive. Upon initial discussion of risk/benefits of fibrinolytic therapy for submassive PE (including relative contraindications of age and possibly duration of symptoms), patient expresses interest in pursuing TPA so contacted Dr. Mahmood who is diamond mounter for Echo and obtaining stat Echo to evaluate R heart strain. Extensive discussion with patient, , son and grandson. Subjective: 09/07: improving symptoms. hgb dropped from 13 --> 11 today. will recheck. ROS otherwise negative. on 3L o2 by NC. Objective Vital Signs Date Time Temp Pulse Resp B/P (MAP) Pulse Ox O2 Delivery O2 Flow Rate FiO2 09/07/17 06:00 47 09/07/17 04:00 99.1 186/86 (119) 100 09/07/17 03:00 Nasal Cannula 3.00 09/06/17 18:15 20 Intake and Output 09/07/17 09/07/17 09/08/17 08:00 16:00 00:00 Intake Total 960 ml Output Total 1485 ml Balance -525 ml Result Diagram: 09/07/17 0540 09/07/17 0540 Objective Remarks GENERAL: elderly patient who is sitting up in bed on nasal cannula. He is alert and interactive SKIN: Warm and dry, well-perfused without bruising HEAD: Atraumatic. Normocephalic. EYES: Pupils equal and round. No scleral icterus. No injection or drainage. ENT: No nasal bleeding or discharge. Mucous membranes pink and moist. NECK: Trachea midline. Thick neck, no JVD appreciated. CARDIOVASCULAR: Irregularly irregular with rate in the 60s. afib by tele. RESPIRATORY: unlabored this morning. in no distress. Without accessory muscle use. GASTROINTESTINAL: Abdomen soft, protuberant, non-tender, nondistended. MUSCULOSKELETAL: Extremities without clubbing, cyanosis, or edema. No obvious deformities. NEUROLOGICAL: Awake and alert, oriented 4. No obvious cranial nerve deficits. A/P Problem List: (1) Systolic heart failure, chronic ICD Code: I50.22 - Chronic systolic (congestive) heart failure Status: Chronic (2) Atrial fibrillation ICD Code: I48.91 - Unspecified atrial fibrillation Status: Chronic (3) Pulmonary embolism, bilateral ICD Code: I26.99 - Other pulmonary embolism without acute cor pulmonale Status: Acute (4) Obesity (BMI 30-39.9) ICD Code: E66.9 - Obesity, unspecified Status: Chronic (5) BPH (benign prostatic hyperplasia) ICD Code: N40.0 - Benign prostatic hyperplasia without lower urinary tract symptoms Status: Chronic (6) Hematuria ICD Code: R31.9 - Hematuria, unspecified Status: Acute Permanent Comment: post - TPA Last Edited By: Aracelis Ortiz on Sep 07, 2017 05: 53 (7) Hemoptysis ICD Code: R04.2 - Hemoptysis Status: Acute (8) History of tobacco abuse ICD Code: Z87.891 - Personal history of nicotine dependence Status: Chronic (9) DVT, bilateral lower limbs ICD Code: I82.403 - Acute embolism and thrombosis of unspecified deep veins of lower extremity, bilateral Status: Acute Assessment and Plan Assessment: 81yM with submassive pulmonary embolism s/p 50mg TPA on 09/06. clinically stable. will trend hgb. keep bedrest until 24h post TPA. continue anticoagulation. mild hematuria clearing up. keep in ICU at least 1 more day. NEURO: CT brain 09/06 - negative for acute intracranial abnormality. RESP: Dyspnea Prior tobacco abuse NC wean as tolerated. IS q1 hour awake. CV: Submassive PE with Right heart strain Chronic systolic heart failure. Syncope Atrial fibrillation, rate controlled Hemoptysis - suspect secondary to PE Hypertension Hyperlipidemia CTPA with saddle pulmonary embolism, bilateral segmental and subsegmental PE. He has been normotensive on NC. Troponin negative, BNP 295. Stat Echo obtained and discussed with Dr. Mahmood. EF 35-40%. RV dilated and hypokinetic. RSVP 67 Although he has been hemodynamically stable in the hospital, this is a high risk PE. Discussed in detail risk/ benefit of TPA 50 mg IV dose for submassive PE. Patient aware of relative contraindication of age >80. Also discussed that because of duration of symptoms, if the RV strain has been more long standing, there may be less benefit from fibrinolytic. He may have had multiple subacute PE with acute submassive event yesterday evening when he had syncope. Hope is that aggressive treatment of this clot burden can decrease pulmonary htn, lower risk of recurrent PE, produce improvement of symptoms and activity tolerance. Discussed 1-3% risk of ICH and ~10% risk of hemorrhage when including extracranial. Patient places high value on quality of life and feels he would want aggressive therapy to mitigate consequences of pulmonary HTN and RV dysfunction. He is accepting risks of hemorrhage and has discussed this with his and children who are in agreement. Has received Lovenox, will continue concomitantly per MOPPETT trial methodology. Transfer to ICU. Give TPA 10 mg IV with 40 mg IV over 2 hours. Monitor for bleeding. In view of RV dysfunction and acute PE, will hold beta arturo at this time. 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 Resume losartan 50 mg po daily. Hold aspirin for now following TPA Cardiology following, Dr. Serrato. Continue simvastatin 40 mg p.o. nightly Although patient denied prior Echo, I later discovered in [employer] system that showed global hypokinesis EF 40-45%, biatrial enlargement. Moderate MR/ TR, mod pulmonary HTN. GI: Obesity Heart healthy diet FEN/RENAL: Urinary retention BPH Patient had post void residual of 950. Had I/O cath for this. In view of the fact we are proceeding with fibrinolytics, will Place Arrieta. Continue flomax 0.4 mg p.o. nightly ID: Community acquired pneumonia On Rocephin and azithromycin 09/06 #2. Follow-up blood cultures. Initial urinalysis upon insertion of Arrieta catheter has pyuria. We will follow-up urine culture. HEME: Submassive pulmonary embolus Bilateral lower extremity DVT (right posterior tibial nonocclusive thrombus. Occlusive thrombus left peroneal vein. Nonocclusive thrombus left popliteal and posterior tibial) No clear provoking factor. Will consult hematology for recommendations regarding workup and for followup. ENDO: Monitor glucose. Start insulin sliding scale if needed TSH normal MSK: Gout Continue with allopurinol 300 mg p.o. daily PROPH: Lovenox as per above for DVT treatment. ACCESS: PIV providing adequate access at this time. No IV sticks x24 hours. Famotidine for stress ulcer prophylactic Full code Rubén Clay MD Sep 07, 2017 11:13
[2017-09-07] MEDS ORDERED: LOSARTAN 50 MG TAB PO ONE (11:45)
[2017-09-07 15:18] LABS: HEMATOCRIT 35.4 % (39.0-51.0); HEMOGLOBIN 11.9 GM/DL (13.0-17.0)
--- NOTE | 2017-09-07 15:43 | EKG ---
Date Performed: 09/05/2017 Time Performed: 23:18:54 PTAGE: 81 years EKG: Atrial fibrillation. There is a couplet pattern. Patterning consistent either with couplets or atrial fibrillation with aberrency. ABNORMAL ECG NO PREVIOUS TRACING DOCTOR: Clarissa Cr Interpretating Date/Time 09/07/2017 15:42:20
--- NOTE | 2017-09-07 15:45 | EKG ---
Date Performed: 09/06/2017 Time Performed: 06:00:22 PTAGE: 81 years EKG: ATRIAL FIBRILLATION WITH CONTROLLED VENTRICULAR RATE AND WIDE COMPLEX BEATS OR PVC Compared to previous tracing, the wide complex beats are less frequent. ABNORMAL ECG PREVIOUS TRACING : 09/05/2017 23.18.54 DOCTOR: Clarissa Cr Interpretating Date/Time 09/07/2017 15:43:21
[2017-09-07] MEDS ORDERED: LOSARTAN 50 MG TAB PO SCH (21:00)
[2017-09-07] MEDS: PRAVASTATIN SOD 80 MG TAB PO SCH (21:01)
[2017-09-07] MEDS: TAMSULOSIN HCL 0.4 MG CAP PO SCH (21:01)
[2017-09-07] MEDS: cefTRIAXone INJ 1,000 MG in SODIUM CHLORIDE 0.9% INJ 100 ML IV SCH (22:15)
[2017-09-07] MEDS: AZITHROMYCIN INJ 500 MG in SODIUM CHLOR 0.9% 250 ML INJ 250 ML IV SCH (22:49)
[2017-09-08] VITALS (10 sets, daily range): BP systolic 109–184; BP diastolic 56–97; PULSE 38–74; RESP 15–26; TEMP 97.3–98.9; O2SAT 94–100
[2017-09-08] MEDS: ENOXAPARIN SODIUM 100 MG/ML SYRINGE SQ SCH (03:57)
[2017-09-08 07:09] LABS: HEMATOCRIT 35.5 % (39.0-51.0); HEMOGLOBIN 12.4 GM/DL (13.0-17.0); MEAN CELL VOLUME 93.1 FL (80.0-100.0); MEAN CORPUSCULAR HEMOGLOBIN 32.5 PG (27.0-34.0); MEAN CORPUSCULAR HGB CONC 34.9 % (32.0-36.0); PLATELET COUNT 183 TH/MM3 (150-450); RED BLOOD COUNT 3.82 MIL/MM3 (4.50-5.90); RED CELL DISTRIBUTION WIDTH 14.6 % (11.6-17.2); WHITE BLOOD COUNT 9.6 TH/MM3 (4.0-11.0)
[2017-09-08 07:13] LABS: BICARBONATE 22.9 MEQ/L (21.0-32.0); CALCIUM 8.6 MG/DL (8.5-10.1); CREATININE 0.89 MG/DL (0.60-1.30)
--- NOTE | 2017-09-08 08:43 | HHI.CCPN ---
Subjective Remarks/Hospital Course Hospital Course: 81-year-old male with past medical history of hypertension, hyperlipidemia, obesity, remote tobacco abuse who presented to [facility] the evening of 09/05 after a syncopal event. Reportedly patient was in the bathroom and was short of breath and then became unresponsive and was lowered to the ground by his son. No seizure or head trauma.. EVAC was called and found him diaphoretic, pale, in bigeminy. He was given lidocaine and then was in A fib. Troponin was normal. CXR showed RLL opacity and he as given ceftriaxone and azithromycin. He was admitted to hospitalist for further workup. CT chest was ordered by Dr. Serrato and demonstrates extensive bilateral pulmonary emboli. There is a saddle embolus component. He has received Lovenox [address] Harp has consulted [facility] regarding possible fibrinolytic therapy. Patient state he has noticed dyspnea on exertion about 2 months. He states he had previously had an EKG in December 2016 and had been told that he had atrial fibrillation. He was told to follow-up with cardiology but did not. A week ago he was at PCP (Dr. García) and was referred to Dr. Serrato. Patient states that for the last 2 weeks he has had progressive worsening SOB. Over the last 2 days he has been SOB with ambulating a few feet. He has had some cough, occasionally productive of blood tinged sputum. No peripheral edema. He has had some pain in his right posterior thorax, intermittent, pleuritic. No chest pain with exertion. No palpitations. No prior h/o VTE, no recent surgery, no known malignancy, no trauma. No h/o stroke/TIA , ICH, trauma, brain/spinal lesions, GI or other bleeding, bleeding diathesis, recent surgery, spinal intervention, prior anticoagulant therapy, retinopathy or other absolute contraindication for fibrinolytic. Serial troponins have been normal. BNP 295. He has been normotensive/hypertensive. Upon initial discussion of risk/benefits of fibrinolytic therapy for submassive PE (including relative contraindications of age and possibly duration of symptoms), patient expresses interest in pursuing TPA so contacted Dr. Mahmood who is sap pp consultant for Echo and obtaining stat Echo to evaluate R heart strain. Extensive discussion with patient, , son and grandson. Subjective: 09/07: improving symptoms. hgb dropped from 13 --> 11 today. will recheck. ROS otherwise negative. on 3L o2 by NC. 09/08: on room air. symptoms continue to improve. hgb stable. denies complaints. sob improving subjectively. urine is becoming more clear, but slightly hematuria persists. Objective Vital Signs Date Time Temp Pulse Resp B/P (MAP) Pulse Ox O2 Delivery O2 Flow Rate FiO2 09/08/17 08:00 97.5 38 15 127/67 (87) 100 09/08/17 07:00 Room Air 09/08/17 03:00 3.00 Intake and Output 09/08/17 09/08/17 09/09/17 08:00 16:00 00:00 Intake Total 240 ml Output Total 1000 ml Balance -760 ml Result Diagram: 09/08/1760109/08/17601 Objective Remarks GENERAL: elderly patient who is sitting up in bed on room air. He is alert and interactive SKIN: Warm and dry, well-perfused without bruising HEAD: Atraumatic. Normocephalic. EYES: Pupils equal and round. No scleral icterus. No injection or drainage. ENT: No nasal bleeding or discharge. Mucous membranes pink and moist. NECK: Trachea midline. Thick neck, no JVD appreciated. CARDIOVASCULAR: Irregularly irregular with rate in the 50s. afib by tele. RESPIRATORY: unlabored this morning. in no distress. Without accessory muscle use. GASTROINTESTINAL: Abdomen soft, protuberant, non-tender, nondistended. MUSCULOSKELETAL: Extremities without clubbing, cyanosis, or edema. No obvious deformities. NEUROLOGICAL: Awake and alert, oriented 4. No obvious cranial nerve deficits. A/P Problem List: (1) Systolic heart failure, chronic ICD Code: I50.22 - Chronic systolic (congestive) heart failure Status: Chronic (2) Atrial fibrillation ICD Code: I48.91 - Unspecified atrial fibrillation Status: Chronic (3) Pulmonary embolism, bilateral ICD Code: I26.99 - Other pulmonary embolism without acute cor pulmonale Status: Acute (4) Obesity (BMI 30-39.9) ICD Code: E66.9 - Obesity, unspecified Status: Chronic (5) BPH (benign prostatic hyperplasia) ICD Code: N40.0 - Benign prostatic hyperplasia without lower urinary tract symptoms Status: Chronic (6) Hematuria ICD Code: R31.9 - Hematuria, unspecified Status: Acute Permanent Comment: post - TPA Last Edited By: Aracelis Ortiz on Sep 07, 2017 05: 53 (7) Hemoptysis ICD Code: R04.2 - Hemoptysis Status: Acute (8) History of tobacco abuse ICD Code: Z87.891 - Personal history of nicotine dependence Status: Chronic (9) DVT, bilateral lower limbs ICD Code: I82.403 - Acute embolism and thrombosis of unspecified deep veins of lower extremity, bilateral Status: Acute Assessment and Plan Assessment: 81yM with submassive pulmonary embolism s/p 50mg TPA on 09/06. clinically stable. OOB with assistance. PT/OT consults. stable for transfer out of ICU. will consult hospitalist service. have discussed care with marketing program manager , and his preference is Eliquis for long-term anticoagulation, so we will plan to start this today and transition off lovenox. NEURO: CT brain 09/06 - negative for acute intracranial abnormality. RESP: Dyspnea Prior tobacco abuse NC wean as tolerated. IS q1 hour awake. CV: Submassive PE with Right heart strain Chronic systolic heart failure. Syncope Atrial fibrillation, rate controlled Hemoptysis - suspect secondary to PE Hypertension Hyperlipidemia CTPA with saddle pulmonary embolism, bilateral segmental and subsegmental PE. He has been normotensive on NC. Troponin negative, BNP 295. Stat Echo obtained and discussed with Dr. Mahmood. EF 35-40%. RV dilated and hypokinetic. RSVP 67 Although he has been hemodynamically stable in the hospital, this is a high risk PE. Discussed in detail risk/ benefit of TPA 50 mg IV dose for submassive PE. Patient aware of relative contraindication of age >80. Also discussed that because of duration of symptoms, if the RV strain has been more long standing, there may be less benefit from fibrinolytic. He may have had multiple subacute PE with acute submassive event yesterday evening when he had syncope. Hope is that aggressive treatment of this clot burden can decrease pulmonary htn, lower risk of recurrent PE, produce improvement of symptoms and activity tolerance. Discussed 1-3% risk of ICH and ~10% risk of hemorrhage when including extracranial. Patient places high value on quality of life and feels he would want aggressive therapy to mitigate consequences of pulmonary HTN and RV dysfunction. He is accepting risks of hemorrhage and has discussed this with his and children who are in agreement. Has received Lovenox, will continue concomitantly per MOPPETT trial methodology. Transfer to ICU. Give TPA 10 mg IV with 40 mg IV over 2 hours. Monitor for bleeding. In view of RV dysfunction and acute PE, will hold beta arturo at this time. Beta arturo will be needed terminal superintendent for CHF once stabilized from PE. losartan 50 mg po daily. Hold aspirin for now following TPA Cardiology following, Dr. Serrato. Continue simvastatin 40 mg p.o. nightly Although patient denied prior Echo, I later discovered in [employer] system that showed global hypokinesis EF 40-45%, biatrial enlargement. Moderate MR/ TR, mod pulmonary HTN. GI: Obesity Heart healthy diet FEN/RENAL: Urinary retention BPH Patient had post void residual of 950. Had I/O cath for this. In view of the fact we are proceeding with fibrinolytics, will Place Arrieta. Continue flomax 0.4 mg p.o. nightly ID: Community acquired pneumonia On Rocephin and azithromycin 09/06 #3. d/c today. cultures NGTD x 48h. HEME: Submassive pulmonary embolus Bilateral lower extremity DVT (right posterior tibial nonocclusive thrombus. Occlusive thrombus left peroneal vein. Nonocclusive thrombus left popliteal and posterior tibial) No clear provoking factor. Will consult hematology for recommendations regarding workup and for followup. transition off lovenox to Eliquis 10mg po BID x 7 days, then 5mg BID. ENDO: Monitor glucose. Start insulin sliding scale if needed TSH normal MSK: Gout Continue with allopurinol 300 mg p.o. daily PROPH: eliquis as above. ACCESS: PIV providing adequate access at this time. Famotidine for stress ulcer prophylactic Full code Rubén Clay MD Sep 08, 2017 08:43
[2017-09-08] MEDS: DOCUSATE SODIUM 50 MG/SENNA 8.6 MG TAB PO SCH ×2 (09:00→21:00)
[2017-09-08] MEDS: SODIUM CHLORIDE 0.9% FLUSH 10 ML FLUSH IV FLUSH SCH ×2 (09:00→21:00)
--- NOTE | 2017-09-08 09:11 | MB ---
cc: Troy Ramirez MD DATE: 09/07/2017 REASON FOR CONSULTATION: The patient with diagnosis of extensive pulmonary emboli and DVT. HISTORY OF PRESENT ILLNESS: This is an 81-year-old male who has a history of hypertension and hyperlipidemia, who has been becoming progressively short of breath over the past 4-5 months. He was found to have atrial fibrillation and was recently seen by his controller coal or ore. He was brought to the emergency room with dizziness and shortness of breath. He became lightheaded and he had a presyncopal episode. EVAC was called and he was found to have bigeminy. In the emergency room, upon arrival, the patient underwent a CT angiogram which showed extensive bilateral pulmonary emboli, with a thin saddle embolus straddling the pulmonary artery bifurcation and extensive clot presentation in the segmental and subsegmental vessels bilaterally. Subsequently, he had a lower extremity Doppler ultrasound as well, which showed bilateral occlusive thrombi in the left peroneal vein. There was also a nonocclusive thrombi in the left popliteal and posterior tibial vein. There was also a nonocclusive thrombus in the right posterior tibial vein. The patient was started on heparin GTT. The patient has received TPA. He is currently asymptomatic and denies any chest pain. He denies any heart palpitations. He is awake and alert and he is eating his dinner. He states that he has been driving to [place] every month. He stated that he does take frequent breaks during his car drives. He is not on any testosterone therapy. He has not had any lower extremity trauma. He states that he used to smoke cigarettes as a teenager, but has not touch a cigarette for 60 years. He rarely drinks alcohol. He retired from the [employer] and he was in the [employer]. He is a professor at [employer]. He does not have any family members who have had blood clots, including DVTs or pulmonary embolisms. REVIEW OF SYSTEMS: A comprehensive review of system was completed which is negative except as described in the HPI. PAST MEDICAL HISTORY: Hypertension, hyperlipidemia, obesity, BPH, gout, vitamin D deficiency, chronic back pain. PAST SURGICAL HISTORY: History of cataract surgery 3-4 years ago, history of knee replacement. FAMILY HISTORY: Was reviewed and is noncontributory to this admission. SOCIAL HISTORY: He is . His lives with his . He does not smoke cigarettes. He retired from the and also worked for the [employer]. MEDICATIONS: Losartan 50 mg p.o. b.i.d., hydralazine 10 mg p.r.n., Colace 100 mg p.o. b.i.d., losartan 50 mg p.o. daily, allopurinol 300 mg p.o. daily, Pepcid 20 mg p.o. daily, ceftriaxone, azithromycin, tamsulosin, pravastatin, Lovenox 100 mg subcutaneous b.i.d., Zofran, Tylenol, [place] 5/325 p.r.n., morphine 2 mg IV every 3 hours p.r.n., Milk of Magnesia p.r.n., senna p.r.n., bisacodyl p.r.n., lactulose p.r.n. ALLERGIES: NO KNOWN DRUG ALLERGIES. PHYSICAL EXAMINATION: VITAL SIGNS: Blood pressure is 106/61, pulse in the 40s, temperature is 98.3, O2 saturations are 98% on 3 liters of nasal cannula. GENERAL: Obese, elderly male in no apparent distress. HEENT: Pupils are equal, round, reactive to light. EOMI. No oral thrush. No lesions. NECK: Supple. No JVD. No bruits. No lymphadenopathy. CHEST: Clear to auscultation bilaterally. CARDIAC: S1, S2. Regular rate and rhythm. He did have atrial fibrillation, but currently his rate and rhythm is regular. Heart rate is in the 60s-70s. ABDOMEN: Soft, nontender, nondistended. Bowel sounds are present. EXTREMITIES: Without any edema, erythema or cyanosis. SKIN: Without any petechiae, lesions or bruises. NEUROLOGIC: No focal deficits. PSYCHIATRIC: Mood and affect is appropriate. LABORATORY DATA: WBC 11, hemoglobin 11.8, platelet count 147. Serum chemistries, sodium 138, potassium 3.9, chloride 106, BUN 25, creatinine 1.02, calcium 8.3, total bilirubin 0.6, AST 26, ALT 32, alkaline phosphatase 66, total protein 6.5, albumin is 2.4. TSH is 1.04. IMAGING: Was reviewed in the EMR. Discussed in the HPI. He also had a chest x-ray which showed cardiomegaly and there was concern for pneumonia in the right upper lobe. ASSESSMENT AND PLAN: This is an 81-year-old male who is becoming progressively short of breath. He was recently found to have atrial fibrillation. He was now brought to the emergency room with episode of presyncope. Imaging revealed large pulmonary embolus and deep venous thrombosis. 1. Extensive bilateral pulmonary embolism with a thin saddle embolus straddling the pulmonary artery bifurcation and extensive clot in the segmental and subsegmental vessels. He also has bilateral lower extremity DVT. These blood clots have occurred in an unprovoked situation. However, he does frequently travel by car to [place], but states that he takes regular breaks. Given the extent of pulmonary embolism, he will need to be on anticoagulation indefinitely. I would recommend converting him to Eliquis 10 mg p.o. b.i.d. x days and then he will be on Eliquis 5 mg p.o. b.i.d. Based on his family history, he does not have any family history of PE or DVT, we could obtain a hypercoagulable workup in the future. This can be completed in the outpatient setting. He can followup in the hematology clinic 4-5 weeks after his hospital discharge. 2. Atrial fibrillation, currently rate controlled. He is currently being seen by cardiology. 3. Community-acquired pneumonia. He is currently on antibiotics. 4. History of benign prostatic hypertrophy and urinary retention. He had a Arrieta in place. He is currently on Flomax. 5. History of gout, currently on allopurinol 300 mg p.o. daily. Thank you for allowing me to participate in the care of this patient. I will continue to follow this patient along. MD ROSA Locke/CORINA , 07:21 PM , 07:51 PM
[2017-09-08] MEDS: LOSARTAN 50 MG TAB PO SCH (09:25)
[2017-09-08] MEDS: FAMOTIDINE 20 MG TAB PO SCH ×2 (09:25→21:50)
[2017-09-08] MEDS: APIXABAN 5 MG TABLET PO SCH ×2 (09:25→21:51)
[2017-09-08] MEDS: ALLOPURINOL 300 MG TAB PO SCH (09:25)
--- NOTE | 2017-09-08 11:09 | ECHRPT ---
Indication: CONCLUSIONS Mildly dilated left ventricle. Wall thickness is normal. The left ventricular systolic function is jktxgnda-td-lrtepor reduced with an estimated ejection fra ction in the range of 35-40%. The right ventricle is moderately dilated. The right ventricular systoilc function is moderately decreased. The left atrial size is anro-ud-anrzzmadck dilated. The right atrial size is vleh-wg-exadqshixm dilated. Mild mitral valve regurgitation. Aortic valve sclerosis is present. There is mild to moderate tricuspid valve regurgitation. The estimated pulmonary arterial pressure is 67 mmHg. Trivial pulmonary valve regurgitation. BP: 136 / 69 HR: 63 Rhythm: Atrial fibrillation Technical Quality:Fair FINDINGS LEFT VENTRICLE Mildly dilated left ventricle. Wall thickness is normal. The left ventricular systolic function is houlnekv-ak-hqviwzp reduced with an estimated ejection fra ction in the range of 35-40%. RIGHT VENTRICLE The right ventricle is moderately dilated. The right ventricular systoilc function is moderately decreased. LEFT ATRIUM The left atrial size is guqq-vv-rnnuczdbxp dilated. RIGHT ATRIUM The right atrial size is qosq-dp-wfmqdelgzw dilated. ATRIAL SEPTUM No atrial level shunt is demonstrated by color flow Doppler interrogation. AORTA The aortic root and proximal ascending aorta are normal in size on limited imaging. MITRAL VALVE Mild mitral valve regurgitation. AORTIC VALVE Aortic valve sclerosis is present. TRICUSPID VALVE There is mild to moderate tricuspid valve regurgitation. The estimated pulmonary arterial pressure is 67 mmHg. PULMONARY VALVE Trivial pulmonary valve regurgitation. VESSELS The inferior vena cava is normal in size. PERICARDIUM No pericardial effusion. Clarissa Cr MD, FACC Edited by: long term care administrator long term care administrator (Electronically Signed) Final Date:06 September 2017 23:01 Amended: 08 September 2017 11:08
--- NOTE | 2017-09-08 13:14 | PD.ONC.PN ---
Subjective Subjective Remarks Afebrile overnight. Patient resting in bed in nad. states he is breathing much better than when he entered the hospital. tolerating eliquis. Objective Data Date Time Temp Pulse Resp B/P (MAP) Pulse Ox O2 Delivery O2 Flow Rate FiO2 09/08/17 11:00 94 Room Air 09/08/17 09:05 99 21 09/08/17 08:00 97.5 38 15 127/67 (87) 100 09/08/17 07:00 94 Room Air 09/08/17 06:00 66 09/08/17 04:00 98.7 55 26 144/69 (94) 100 09/08/17 04:00 55 09/08/17 03:00 96 Nasal Cannula 3.00 09/08/17 02:00 44 09/08/17 00:00 74 09/08/17 00:00 98.9 74 21 168/86 (113) 99 09/07/17 23:00 99 Nasal Cannula 3.00 09/07/17 23:00 99 Nasal Cannula 3.00 09/07/17 22:00 65 09/07/17 20:00 98.2 50 28 120/57 (78) 97 09/07/17 20:00 50 09/07/17 19:00 100 Nasal Cannula 3.00 09/07/17 19:00 100 Nasal Cannula 3.00 09/07/17 18:00 62 09/07/17 16:00 98.3 46 106/61 (76) 98 09/07/17 16:00 46 09/07/17 15:00 100 Nasal Cannula 3.00 09/07/17 14:00 63 09/08/17 09/08/17 09/08/17 07:00 15:00 23:00 Intake Total 240 ml Output Total 1000 ml Balance -760 ml Result Diagram: 09/08/17 0609/08/17601 Laboratory Results Laboratory Tests Test 09/07/17 15:00 09/08/17 06:02 Hemoglobin 11.9 GM/DL 12.4 GM/DL Hematocrit 35.4 % 35.5 % White Blood Count 9.6 TH/MM3 Red Blood Count 3.82 MIL/MM3 Mean Corpuscular Volume 93.1 FL Mean Corpuscular Hemoglobin 32.5 PG Mean Corpuscular Hemoglobin Concent 34.9 % Red Cell Distribution Width 14.6 % Platelet Count 183 TH/MM3 Mean Platelet Volume 8.0 FL Blood Urea Nitrogen 19 MG/DL Creatinine 0.89 MG/DL Random Glucose 102 MG/DL Calcium Level 8.6 MG/DL Sodium Level 139 MEQ/L Potassium Level 4.1 MEQ/L Chloride Level 108 MEQ/L Carbon Dioxide Level 22.9 MEQ/L Anion Gap 8 MEQ/L Estimat Glomerular Filtration Rate 82 ML/MIN Culture Results Microbiology Date/Time Source Procedure Growth Status 09/06/17 01:45 Blood Peripheral Aerobic Blood Culture - Preliminary NO GROWTH IN 2 DAYS Resulted 09/06/17 01:45 Blood Peripheral Anaerobic Blood Culture - Preliminary NO GROWTH IN 2 DAYS Resulted 09/06/17 01:40 Blood Peripheral Aerobic Blood Culture - Preliminary NO GROWTH IN 2 DAYS Resulted 09/06/17 01:40 Blood Peripheral Anaerobic Blood Culture - Preliminary NO GROWTH IN 2 DAYS Resulted 09/07/17 02:30 Urine Clean Catch Urine Culture - Preliminary NO GROWTH IN 24 HOURS. Resulted Administered Medications Medications (Trade) Dose Ordered Sig/Zeinab Route PRN Reason Start Time Stop Time Status Last Admin Dose Admin Metoprolol Tartrate (Lopressor) 25 mg Q12HR PO 09/06/17 09:00 Future Hold 09/06/17 20:53 Sodium Chloride (NS Flush) 2 ml BID IV FLUSH 09/06/17 09:00 09/08/17 09:00 Senna/Docusate Sodium (Estee-Colace) 1 tab BID PO 09/06/17 09:00 09/07/17 21:01 Aspirin (Aspirin) 325 mg DAILY PO 09/06/17 09:00 Future Hold 09/06/17 09:59 Tamsulosin HCl (Flomax) 0.4 mg HS PO 09/06/17 21:00 09/07/17 21:01 Pravastatin Sodium (Pravachol) 80 mg HS PO 09/06/17 21:00 09/07/17 21:01 Losartan Potassium (Cozaar) 50 mg DAILY PO 09/07/17 09:00 09/08/17 09:25 Allopurinol (Zyloprim) 300 mg DAILY PO 09/07/17 09:00 09/08/17 09:25 Famotidine (Pepcid) 20 mg BID PO 09/07/17 09:00 09/08/17 09:25 Apixaban (Eliquis) 10 mg Taper BID PO 09/08/17 09:00 10/06/17 08:59 09/08/17 09:25 Objective Remarks GENERAL: elderly male, sitting up in bed in nad. SKIN: Warm and dry. HEAD: Normocephalic. EYES: No injection or drainage. NECK: Supple, trachea midline. CARDIOVASCULAR: +S1/S2 RESPIRATORY: Breath sounds equal bilaterally. No accessory muscle use. GASTROINTESTINAL: Abdomen soft, non-tender, nondistended. EXTREMITIES: No cyanosis, or edema. MUSCULOSKELETAL: Adequate muscle tone. NEUROLOGICAL: awake and alert. normal speech. moving all extremities. Assessment/Plan Problem List: (1) Pulmonary embolism, bilateral ICD Codes: I26.99 - Other pulmonary embolism without acute cor pulmonale Status: Acute Plan: --on Eliquis. --Extensive bilateral pulmonary embolism with a thin saddle embolus straddling the pulmonary artery bifurcation and extensive clot in the segmental and subsegmental vessels. ++bilateral lower extremity DVT. --unprovoked-->will need to be on anticoagulation indefinitely. Assessment 81y/o male with extensive pulmonary emboli and DVT s/p TPA history of hypertension and hyperlipidemia h/o atrial fibrillation Plan 1. continue Eliquis 10 mg p.o. b.i.d. x 7 days then Eliquis 5 mg p.o. b.i.d thereafter. 2. 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 3. continue supportive care Ariella Barba Sep 08, 2017 13:14 Troy Ramirez MD Sep 08, 2017 22:26
[2017-09-08] MEDS ORDERED: TAMSULOSIN HCL 0.4 MG CAP PO ONE (19:00)
[2017-09-08] MEDS: PRAVASTATIN SOD 80 MG TAB PO SCH (21:50)
[2017-09-08] MEDS: TAMSULOSIN HCL 0.4 MG CAP PO SCH (23:02)
[2017-09-09] VITALS (7 sets, daily range): BP systolic 119–188; BP diastolic 56–92; PULSE 51–76; RESP 18–20; TEMP 97.6–98.7; O2SAT 93–98
[2017-09-09] MEDS ORDERED: TAMSULOSIN HCL 0.4 MG CAP PO SCH (06:00)
[2017-09-09 07:29] LABS: HEMOGLOBIN 12.7 GM/DL (13.0-17.0); MEAN CELL VOLUME 93.2 FL (80.0-100.0); MEAN CORPUSCULAR HEMOGLOBIN 32.1 PG (27.0-34.0); MEAN CORPUSCULAR HGB CONC 34.5 % (32.0-36.0); PLATELET COUNT 219 TH/MM3 (150-450); RED BLOOD COUNT 3.97 MIL/MM3 (4.50-5.90); RED CELL DISTRIBUTION WIDTH 14.9 % (11.6-17.2); WHITE BLOOD COUNT 10.1 TH/MM3 (4.0-11.0)
[2017-09-09 08:22] LABS: BICARBONATE 23.1 MEQ/L (21.0-32.0); CALCIUM 8.7 MG/DL (8.5-10.1); CREATININE 0.9 MG/DL (0.60-1.30)
[2017-09-09 08:28] LABS: CHOLESTEROL/ HDL RATIO 3.06 RATIO; HDL CHOLESTEROL 38.8 MG/DL (40.0-60.0)
[2017-09-09] MEDS: APIXABAN 5 MG TABLET PO SCH ×2 (09:20→22:25)
[2017-09-09] MEDS: DOCUSATE SODIUM 50 MG/SENNA 8.6 MG TAB PO SCH ×2 (09:20→22:25)
[2017-09-09] MEDS: FAMOTIDINE 20 MG TAB PO SCH ×2 (09:20→22:25)
[2017-09-09] MEDS: ALLOPURINOL 300 MG TAB PO SCH (09:20)
[2017-09-09] MEDS: LOSARTAN 50 MG TAB PO SCH (09:20)
[2017-09-09] MEDS: TAMSULOSIN HCL 0.4 MG CAP PO SCH ×2 (09:20→22:25)
[2017-09-09] MEDS: SODIUM CHLORIDE 0.9% FLUSH 10 ML FLUSH IV FLUSH SCH ×2 (09:21→22:27)
--- NOTE | 2017-09-09 10:01 | HHI.PR ---
Subjective Remarks Follow-up for submassive PE. Patient is currently doing well. However, he is unable urinate on his own. No fever, chills. Objective Vitals Vital Signs Date Time Temp Pulse Resp B/P (MAP) Pulse Ox O2 Delivery O2 Flow Rate FiO2 09/09/17 08:00 97.7 69 18 188/92 (124) 98 09/09/17 04:00 98.0 54 18 175/88 (117) 93 09/09/17 00:00 97.6 62 20 160/74 (102) 94 09/08/17 20:00 97.4 63 18 184/97 (126) 94 09/08/17 16:00 97.9 57 18 180/88 (118) 97 09/08/17 12:30 97 Room Air 09/08/17 12:00 97.3 73 18 128/60 (82) 97 09/08/17 11:00 94 Room Air I/O 09/08/17 09/08/17 09/08/17 09/09/17 09/09/17 09/09/17 07:00 15:00 23:00 07:00 15:00 23:00 Intake Total 240 ml Output Total 1000 ml 450 ml 1300 ml Balance -760 ml -450 ml -1300 ml Intake Oral 240 ml Output Urine Total 1000 ml 450 ml 1300 ml Bladder Scan Volume Amount 702 ml # Bowel Movements 0 3 Result Diagram: 09/09/17 0644 09/09/17 [address] Angiography 09/06/17 1505 Signed Impressions: Service Date/Time: Wednesday, September 06, 2017 15:51 - CONCLUSION: Extensive bilateral pulmonary embolism. Jose Nixon MD Lower Extremity Ultrasound 09/06/17 0000 Signed Impressions: Service Date/Time: Wednesday, September 06, 2017 17:23 - CONCLUSION: Bilateral lower extremity DVT as above. Jose Melgar MD Head CT 09/05/17 3499 Signed Impressions: Service Date/Time: Wednesday, September 06, 2017 00:02 - CONCLUSION: 1. No evidence of acute intracranial pathology. No masses are identified. Daron Philippe MD Chest X-Ray 09/05/172336 Signed Impressions: Service Date/Time: Tuesday, September 05, 2017 23:57 - CONCLUSION: 1. Cardiomegaly 2. Opacity laterally in the right upper lobe characteristic of pneumonia. Followup examination to insure clearing is recommended. Daron Philippe MD Objective Remarks GENERAL: Alert, NAD. SKIN: Warm and dry. HEAD: Normocephalic. EYES: No scleral icterus. No injection or drainage. NECK: Supple, trachea midline. No JVD or lymphadenopathy. CARDIOVASCULAR: Regular rate and rhythm without murmurs, gallops, or rubs. RESPIRATORY: Breath sounds equal bilaterally. No accessory muscle use. GASTROINTESTINAL: Abdomen soft, non-tender, nondistended. MUSCULOSKELETAL: No cyanosis, or edema. BACK: Nontender without obvious deformity. No CVA tenderness. A/P Problem List: (1) Syncope ICD Code: R55 - Syncope and collapse (2) Arrhythmia ICD Code: I49.9 - Cardiac arrhythmia, unspecified (3) PNA (pneumonia) ICD Code: J18.9 - Pneumonia, unspecified organism Assessment and Plan Mr. Hutton is an 81-year-old male with a PMH of HTN who is brought to the ER by EMS after an apparent syncopal event. Per patient, he had gone to the bathroom and when he got up from the toilet felt significant dizziness and SOB, states he tried to sit at the edge of the tub to catch his breath. During hospitalization, a CT chest showed extensive bilateral pulmonary embolism. Patient was evaluated by critical care team and after long discussion patient received TPA for submassive PE. His care was transferred to hospitalist service on 09/09/2017. Patient has been doing well. He had urinary retention on 09/09/2017 and required straight cath. We consulted urology who recommended Arrieta catheter placement if patient continues to retain fluid about 400 cc. Submassive pulmonary embolism bilateral Right heart strain Atrial fibrillation rate controlled Status post TPA. Currently patient is on apixaban 10 mg twice a day and then eventually will switch to 5 mg twice a day. Currently on room air, ambulating well without any difficulty. Patient follows up with cardiology in the outpatient setting. BPH Urinary retention Appreciate neurology evaluation. Patient can follow-up with his outpatient urologist. Patient is now urinating on his own. We will do a postvoid bladder scan Patient is not very keen on getting a Arrieta catheter. He is more interested to see how he does and will follow up with his outpatient neurologist next week. Continue Flomax 0.4 mg twice daily. Full code. Apixaban. Problem Qualifiers (1) Syncope: Qualified Codes: R55 - Syncope and collapse (2) Arrhythmia: Qualified Codes: I49.9 - Cardiac arrhythmia, unspecified (3) PNA (pneumonia): Qualified Codes: J18.9 - Pneumonia, unspecified organism Mony Donahue DO Sep 09, 2017 10:01 am
--- NOTE | 2017-09-09 15:28 | PD.CONS ---
HPI Service Urology Consult Requested By Dr Donahue Reason for Consult Urinary retention Primary Care Physician Krystyna Garcia MD Diagnosis: (1) Syncope ICD Code: R55 - Syncope and collapse (2) Arrhythmia ICD Code: I49.9 - Cardiac arrhythmia, unspecified (3) PNA (pneumonia) ICD Code: J18.9 - Pneumonia, unspecified organism History of Present Illness This is an 81-year-old male with a PMH of HTN who is brought to the ER by EMS on 09/06/17 after an apparent syncopal event. No seizure activity reported. No previous h/o similar symptoms. Upon EMS arrival, pt noted to be in bigeminy, given Lidocaine w/ conversion to A-fib. Pt states he's been following w/ his PCP, Dr. Garcia, for SOB / CHF which started approx 2mo ago, at that time was referred for EKG and states the tech told him he was in A-fib, however never officially diagnosed. He is started treatment of pneumonia and CArdiology ordered CTA which was c/w extensive PE on description with thin SADDLE embolus. Also has DVT. He is s/p TPA. Also he is on Eliquis. Noted to be in retention since his admission to the hospital and required str cath. Admits s/ pubic strong pain and inability to void. Last Str cath drained 1000cc. Pt is known to our urology service and he is a pt of [facility]. He was seen several month ago last time. He has h/o elevated PSA with negative biopsy and BPH with incomplete bladder emptying. Last time had PVR of almost 400cc but refused any intervention and said that feel ok. Takes flomax daily, while in the hospital it was increased to 2 pills. no f/c/n/v, no hematuria. Pt was able to void at 3pm today small amount of urine after having BM. Review of Systems Except as stated in HPI: all other systems reviewed are Neg Past Family Social History Past Medical History PMH: HTN, Arrhythmia, BPH Past Surgical History Bilateral Knee Replacement Allergies: Coded Allergies: No Known Allergies (Verified Allergy, Unknown, 09/05/17) Family History Reviewed. No h/o DM or CAD Social History Occasional alcohol. Negative for tobacco or drugs Physical Exam Vital Signs Date Time Temp Pulse Resp B/P (MAP) Pulse Ox O2 Delivery O2 Flow Rate FiO2 09/09/17 11:17 76 09/09/17 08:00 97.7 69 18 188/92 (124) 98 09/09/17 04:00 98.0 54 18 175/88 (117) 93 09/09/17 00:00 97.6 62 20 160/74 (102) 94 09/08/17 20:00 97.4 63 18 184/97 (126) 94 09/08/17 16:00 97.9 57 18 180/88 (118) 97 Physical Exam GENERAL: This is a well-nourished, well-developed patient, in no apparent distress. HEAD: Atraumatic. Normocephalic. NECK:. Supple, nontender, CARDIOVASCULAR: Regular rate and rhythm without murmurs RESPIRATORY: Clear to auscultation. Breath sounds equal bilaterally. No wheezes , rales, or rhonchi. GASTROINTESTINAL: Abdomen soft, non-tender, nondistended. GENITOURINARY: Bladder not distended, normal genital exam MUSCULOSKELETAL: Extremities without clubbing, cyanosis, or edema. NEUROLOGICAL: Awake and alert. Lab results reviewed: Yes Laboratory Tests Test 09/09/17 06:44 White Blood Count 10.1 Red Blood Count 3.97 Hemoglobin 12.7 Hematocrit 37.0 Mean Corpuscular Volume 93.2 Mean Corpuscular Hemoglobin 32.1 Mean Corpuscular Hemoglobin Concent 34.5 Red Cell Distribution Width 14.9 Platelet Count 219 Mean Platelet Volume 8.0 Blood Urea Nitrogen 17 Creatinine 0.90 Random Glucose 136 Calcium Level 8.7 Sodium Level 136 Potassium Level 3.7 Chloride Level 103 Carbon Dioxide Level 23.1 Anion Gap 10 Estimat Glomerular Filtration Rate 81 Triglycerides Level 78 Cholesterol Level 119 LDL Cholesterol 65 HDL Cholesterol 38.8 Cholesterol/HDL Ratio 3.06 Date/Time Source Procedure Growth Status 09/06/17 01:45 Blood Peripheral Aerobic Blood Culture - Preliminary NO GROWTH IN 3 DAYS Resulted 09/06/17 01:45 Blood Peripheral Anaerobic Blood Culture - Preliminary NO GROWTH IN 3 DAYS Resulted 09/07/17 02:30 Urine Clean Catch Urine Culture - Final NO GROWTH IN 48 HOURS. Complete Result Diagram: 09/09/17 0644 09/09/17 0644 Personally reviewed images: Yes Imaging Last Impressions CT Angiography 09/06/17 1505 Signed Impressions: Service Date/Time: SaturSeptember 06, 2017 15:51 - CONCLUSION: Extensive bilateral pulmonary embolism. Jose Nixon MD Lower Extremity Ultrasound 09/06/17 0000 Signed Impressions: Service Date/Time: Wednesday, September 06, 2017 17:23 - CONCLUSION: Bilateral lower extremity DVT as above. Jose Melgar MD Head CT 09/05/17 2337 Signed Impressions: Service Date/Time: Wednesday, September 06, 2017 00:02 - CONCLUSION: 1. No evidence of acute intracranial pathology. No masses are identified. Daron Philippe MD Chest X-Ray 09/05/172336 Signed Impressions: Service Date/Time: Tuesday, September 05, 2017 23:57 - CONCLUSION: 1. Cardiomegaly 2. Opacity laterally in the right upper lobe characteristic of pneumonia. Followup examination to insure clearing is recommended. Daron Philippe MD Assessment and Plan Assessment and Plan 81 y.o male with PE, DVT Afib, s/p tpa with urinary retention now Continue care as per primary team No acute intervention needed Let pt try to void and perform bladder scan after voiding If retains 400cc or more place leger catheter ( order placed in case needed) and pt will need to be d/c with it Continue Flomax bid, add proscar 5mg a day Pt to follow up with Dr Saab after d/c for further evaluation in clinic Discussed Condition With Dr Jimmy JACKSON attending who agrees with this plan Problem Qualifiers (1) Syncope: Qualified Codes: R55 - Syncope and collapse (2) Arrhythmia: Qualified Codes: I49.9 - Cardiac arrhythmia, unspecified (3) PNA (pneumonia): Qualified Codes: J18.9 - Pneumonia, unspecified organism Landon Akbar Sep 09, 2017 15:28
[2017-09-09] MEDS: PRAVASTATIN SOD 80 MG TAB PO SCH (22:25)
[2017-09-10] VITALS: BP 123/62; PULSE 58; PULSE 71; RESP 18; TEMP 98.1; O2SAT 97
[2017-09-10 04:00] VITALS: BP 157/66; PULSE 56; PULSE 63; RESP 18; TEMP 97.9; O2SAT 90
[2017-09-10 06:50] LABS: HEMATOCRIT 35.3 % (39.0-51.0); HEMOGLOBIN 12.1 GM/DL (13.0-17.0); MEAN CELL VOLUME 92.8 FL (80.0-100.0); MEAN CORPUSCULAR HEMOGLOBIN 31.9 PG (27.0-34.0); MEAN CORPUSCULAR HGB CONC 34.4 % (32.0-36.0); MEAN PLATELET VOLUME 7.5 FL (7.0-11.0); PLATELET COUNT 271 TH/MM3 (150-450); RED CELL DISTRIBUTION WIDTH 14.6 % (11.6-17.2); WHITE BLOOD COUNT 10.4 TH/MM3 (4.0-11.0)
[2017-09-10 07:51] LABS: BICARBONATE 24.1 MEQ/L (21.0-32.0); CALCIUM 9.1 MG/DL (8.5-10.1); CREATININE 0.96 MG/DL (0.60-1.30)
[2017-09-10 08:00] VITALS: BP 145/68; PULSE 43; RESP 20; TEMP 97.7; O2SAT 97
[2017-09-10] MEDS: TAMSULOSIN HCL 0.4 MG CAP PO SCH (09:40)
[2017-09-10] MEDS: FAMOTIDINE 20 MG TAB PO SCH (09:40)
[2017-09-10] MEDS: LOSARTAN 50 MG TAB PO SCH (09:40)
[2017-09-10] MEDS: DOCUSATE SODIUM 50 MG/SENNA 8.6 MG TAB PO SCH (09:40)
[2017-09-10] MEDS: APIXABAN 5 MG TABLET PO SCH (09:40)
[2017-09-10] MEDS: ALLOPURINOL 300 MG TAB PO SCH (09:40)
[2017-09-10] MEDS: SODIUM CHLORIDE 0.9% FLUSH 10 ML FLUSH IV FLUSH SCH (09:41)
[2017-09-10 12:00] VITALS: BP 133/62; PULSE 52; RESP 18; TEMP 97.4; O2SAT 97
[2017-09-10] MEDS ORDERED: APIX5TAB PO (13:50)
[2017-09-10 16:00] VITALS: BP 145/65; PULSE 42; RESP 18; TEMP 97.5; O2SAT 93
--- NOTE | 2017-09-10 18:08 | HHI.DS ---
Discharge Summary Admission Date Sep 06, 2017 at 16:27 Discharge Date: Sep 10, 2017 Admitting Diagnosis SYNCOPE,CHF,PNA (1) Syncope ICD Code: R55 - Syncope and collapse (2) Arrhythmia ICD Code: I49.9 - Cardiac arrhythmia, unspecified (3) PNA (pneumonia) ICD Code: J18.9 - Pneumonia, unspecified organism (4) Pulmonary embolism, bilateral ICD Code: I26.99 - Other pulmonary embolism without acute cor pulmonale Diagnosis: Principal Status: Acute Procedures Received tPA. Brief History - From Admission This is an 81-year-old male with a PMH of HTN who is brought to the ER by EMS after an apparent syncopal event. Per patient, he had gone to the bathroom and when he got up from the toilet felt significant dizziness and SOB, states he tried to sit at the edge of the tub to catch his breath, however Son reports pt had syncopal event. No seizure activity reported. No previous h/o similar symptoms. Upon EMS arrival, pt noted to be in bigeminy, given Lidocaine w/ conversion to A-fib. Pt states he's been following w/ his PCP, Dr. Garcia, for SOB which started approx 2mo ago, at that time was referred for EKG and states the tech told him he was in A-fib, however never officially diagnosed. Was supposed to be referred to Dr. Arguello on Friday for further evaluation. Pt notes progressive SOB, first 100ft, then 50ft, now reports SOB w/ few feet. Denies fever, chills. Reports occasional non-productive cough. No edema. On arrival, BP 129/75, HR 68, O2 sat 95% on 2L NC, Afebrile. WBC 11.4. Platelets 149, no previous labs for comparison. BUN 22, GFR 61. BNP 295. Troponin 0.04. INR 1.2. CXR with cardiomegaly, opacity right upper lobe characteristic of pneumonia. CT Head with no acute findings. S/p Rocephin/Zithro in ER. Currently without complaints. CBC/BMP: 09/10/17 0626 09/10/17 0626 Significant Findings Laboratory Tests Test 09/08/17 06:02 09/09/17 06:44 09/10/17 06:26 Red Blood Count 3.82 MIL/MM3 (4.50-5.90) 3.97 MIL/MM3 (4.50-5.90) 3.80 MIL/MM3 (4.50-5.90) Hemoglobin 12.4 GM/DL (13.0-17.0) 12.7 GM/DL (13.0-17.0) 12.1 GM/DL (13.0-17.0) Hematocrit 35.5 % (39.0-51.0) 37.0 % (39.0-51.0) 35.3 % (39.0-51.0) Blood Urea Nitrogen 19 MG/DL (7-18) Chloride Level 108 MEQ/L (98-107) Estimat Glomerular Filtration Rate 82 ML/MIN (>89) 81 ML/MIN (>89) 75 ML/MIN (>89) Random Glucose 136 MG/DL (74-106) 118 MG/DL (74-106) Cholesterol Level 119 MG/DL (120-200) HDL Cholesterol 38.8 MG/DL (40.0-60.0) Imaging Last Impressions CT Angiography 09/06/17 1505 Signed Impressions: Service Date/Time: Wednesday, September 06, 2017 15:51 - CONCLUSION: Extensive bilateral pulmonary embolism. Jose Nixon MD Lower Extremity Ultrasound 09/06/17 0000 Signed Impressions: Service Date/Time: Wednesday, September 06, 2017 17:23 - CONCLUSION: Bilateral lower extremity DVT as above. Jose Melgar MD Head CT 09/05/172336 Signed Impressions: Service Date/Time: Wednesday, September 06, 2017 00:02 - CONCLUSION: 1. No evidence of acute intracranial pathology. No masses are identified. Daron Philippe MD Chest X-Ray 09/05/172336 Signed Impressions: Service Date/Time: Tuesday, September 05, 2017 23:57 - CONCLUSION: 1. Cardiomegaly 2. Opacity laterally in the right upper lobe characteristic of pneumonia. Followup examination to insure clearing is recommended. Daron Philippe MD PE at Discharge GENERAL: Alert, NAD. SKIN: Warm and dry. HEAD: Normocephalic. EYES: No scleral icterus. No injection or drainage. NECK: Supple, trachea midline. No JVD or lymphadenopathy. CARDIOVASCULAR: Regular rate and rhythm without murmurs, gallops, or rubs. RESPIRATORY: Breath sounds equal bilaterally. No accessory muscle use. GASTROINTESTINAL: Abdomen soft, non-tender, nondistended. MUSCULOSKELETAL: No cyanosis, or edema. BACK: Nontender without obvious deformity. No CVA tenderness. Pt update on day of discharge Patient is currently doing well. No acute concerns, on room air. He has been able to urinate on his own but not complete void. He does not want to get a Arrieta cath when he goes home. Hospital Course Mr. Hutton is an 81-year-old male with a PMH of HTN who is brought to the ER by EMS after an apparent syncopal event. Per patient, he had gone to the bathroom and when he got up from the toilet felt significant dizziness and SOB, states he tried to sit at the edge of the tub to catch his breath. During hospitalization, a CT chest showed extensive bilateral pulmonary embolism. Patient was evaluated by critical care team and after long discussion patient received TPA for submassive PE. His care was transferred to hospitalist service on 09/09/2017. Patient has been doing well. He had urinary retention on 09/09/2017 and required straight cath. We consulted urology who recommended Arrieta catheter placement if patient continues to retain fluid about 400 cc. Submassive pulmonary embolism bilateral Right heart strain Atrial fibrillation rate controlled Status post TPA. Currently patient is on apixaban 10 mg twice a day X 7 days total and then 5mg BID. Currently on room air, ambulating well without any difficulty. Patient follows up with cardiology in the outpatient setting. BPH Urinary retention Appreciate neurology evaluation. Patient can follow-up with his outpatient urologist. Patient is now urinating on his own. We will do a postvoid bladder scan Patient is not very keen on getting a Arrieta catheter. He is more interested to see how he does and will follow up with his outpatient neurologist next week. Continue Flomax 0.4 mg twice daily. Full code. Apixaban. Pt Condition on Discharge: Good Discharge Disposition: Discharge Home Discharge Time: > 30 minutes Discharge Instructions DIET: Follow Instructions for: Heart Healthy Diet Activities you can perform: Regular-No Restrictions Follow up Referrals: Appointment for Follow Up Cardiology - 3 Weeks with Ramon Weems MD Cardiology, Interventional PCP Follow-up - 1 Week PCP Follow-up Urology - 3-5 Days with Uriel Saab M.d. New Medications: Apixaban (Eliquis) 5 Mg Tab 5 MG PO BID for Blood Clot Prevention, #70 TAB 0 Refills Take 10mg (two 5mg tablets) Twice a day through 09/14/2017. THEN start 5mg twice a day. Continued Medications: Allopurinol (Allopurinol) 300 Mg Tab 300 MG PO DAILY for Gout, #30 TAB 0 Refills Cholecalciferol (Vitamin D-3) 1,000 Unit Cap Cranberry Conc/C/Bacill Coag (Cranberry Tablet) 450 Mg-30 Mg-50 Million Cell Tablet Losartan (Losartan) 50 Mg Tab 50 MG PO DAILY for Blood Pressure Management, #30 TAB 0 Refills Simvastatin (Simvastatin) 40 Mg Tab 40 MG PO HS for Cholesterol Management, #30 TAB 0 Refills Tamsulosin (Flomax) 0.4 Mg Cap 0.4 MG PO HS for Manage Prostate Problems, #30 CAP 0 Refills Discontinued Medications: Aspirin (Aspirin Low Dose) 81 Mg Chew 325 MG CHEW DAILY, TAB 0 Refills Mony Donahue DO Sep 10, 2017 6:08 pm
== END 2017-09-10 18:25 | disposition home or self-care (01) | DRG 175 ==
LOC: NEPC 23:09 → NEDA 09-06 02:17 → NEDH 09-06 13:45 → OBSVTOIN 09-06 16:27 → HCPC 09-06 18:15 → N03A 09-07 00:35 → N05B 09-08 12:00
PROVIDERS: ADMIT Hospitalist; ATTEND Hospitalist
DX: I26.92 Saddle embolus of pulmonary artery without acute cor pulmonale (principal); J18.9 Pneumonia, unspecified organism; I11.0 Hypertensive heart disease with heart failure; I27.20 Pulmonary hypertension, unspecified; I82.432 Acute embolism and thrombosis of left popliteal vein; I50.22 Chronic systolic (congestive) heart failure; R04.2 Hemoptysis; I82.4Z2 Acute embolism and thrombosis of unspecified deep veins of left distal lower extremity; I82.443 Acute embolism and thrombosis of tibial vein, bilateral; I48.91 Unspecified atrial fibrillation; R55 Syncope and collapse; E55.9 Vitamin D deficiency, unspecified; E78.5 Hyperlipidemia, unspecified; N40.1 Benign prostatic hyperplasia with lower urinary tract symptoms; I49.3 Ventricular premature depolarization; R31.9 Hematuria, unspecified; R33.8 Other retention of urine; M10.9 Gout, unspecified; M54.9 Dorsalgia, unspecified; G89.21 Chronic pain due to trauma; I08.1 Rheumatic disorders of both mitral and tricuspid valves; E66.9 Obesity, unspecified; Z68.32 Body mass index [BMI] 32.0-32.9, adult; Z87.891 Personal history of nicotine dependence; Z96.653 Presence of artificial knee joint, bilateral
CPT/HCPCS: 70450; 71045; 71275; 80048; 80053; 80061; 81001; 82550; 83735; 83880; 84100; 84439; 84443; 84484; 85014; 85018; 85025; 85027; 85610; 85730; 86850; 86900; 86901; 87040; 87086; 87641; 93005; 93306; 93970; 94150; J0456; J0696; J1650; J2270; J2997; J7050; Q9967